=== PATIENT | female | born 1935 | race Caucasian/White ===

== ENCOUNTER 2018-04-12 18:49 | Inpatient (IN) ==
[2018-04-12] MEDS ORDERED: Ondansetron 4 MG/2 ML VIAL IVP ONE ×2 (18:52→20:13)
--- NOTE | 2018-04-12 18:53 | Emergency Department Note ---
START Narrative - START START: Start note: 81-year-old female by EMS for nausea and vomiting and abdominal cramping. No fevers chills shortness breath or chest pain. Patient is hemodynamically stable at 98 systolic. Slightly dry oral mucosa I discussed with the patient that I would be starting evaluation with lab work and give her some IV fluids and medicine for nausea and the evening ED attending team will assume care for her. Patient is in agreement and understanding of this. Patient stable
[2018-04-12] MEDS: 0.9 % Sodium Chloride 1,000 ML IVC ONE ×2 (19:08→19:47)
--- NOTE | 2018-04-12 19:09 | Emergency Department Note ---
Disposition Clinical Impression: Lactic acidosis, Colitis UTI (urinary tract infection) Qualifiers: Urinary tract infection type: site unspecified Hematuria presence: with hematuria Qualified Code(s): N39.0 - Urinary tract infection, site not specified Abdominal pain Qualifiers: Abdominal location: unspecified location Qualified Code(s): R10.9 - Unspecified abdominal pain Disposition: Admitted As Inpatient Condition: Good Referrals: Sae,Ashleigh Bruce [employer] [Primary Care Provider] - Forms: Work/School Release, ED Satisfaction Letter Time of Disposition: 20:38 Abdominal Pain HPI - General Chief Complaint: ED Nausea/Vomiting/Diarrhea Stated Complaint: nausea Time Seen by Provider: 04/12/18 18:51 Source: patient, EMS Mode of arrival: EMS Limitations: no limitations Nursing Notes Reviewed: Yes Vital Signs Reviewed: Yes - History of Present Illness HPI Narrative: 82-year-old female history of hypertension and non insulin-dependent diabetes mellitus presents emergency department via EMS with episode of nausea and abdominal discomfort. Around 1800 she was preparing to go to her son's house for dinner. She reports feeling nauseated. She wanted to throw up but was unable to. She is complaining of some discomfort to her lower abdomen. It is crampy and sharp. She reports a normal bowel movement today. She says lately she has been having loose stools. No recent antibiotic or hospitalization. No recent travel. She denied any chest pain or shortness of breath. She denies any urinary symptoms. History of total hysterectomy. No history of kidney stones or cardiac ischemic disease. Pt Subjective Complaint: abdominal pain Pain Scale: 0 - Related Data Home Medications Medication Instructions Recorded Confirmed Atorvastatin Calcium [Lipitor] 12/20/15 Calcium Carbonate/Vitamin D3 1 each PO 12/20/15 [Calcarb 600 W-Vitamin D Tab] Cholecalciferol (Vitamin D3) 2,000 unit PO 12/20/15 [Vitamin D] Lisinopril-HCTZ 20-12.5 [Prinzide 1 each PO 12/20/15 20-12.5] Metformin HCl [Fortamet] 12/20/15 Norvasc 12/20/15 Raloxifene [Evista] 60 mg PO DAILY 12/20/15 12/20/15 Trospium Chloride [Trospium 12/20/15 12/20/15 Chloride] Previous Rx's Medication Instructions Recorded Azithromycin [Azithromycin 6-Tab 250 mg PO DAILY #6 tab 12/20/15 Pack] Benzonatate [Tessalon] 100 - 200 mg PO TID PRN #30 capsule 12/20/15 Promethazine/Dextromethorphan 5 ml PO HS #120 ml 12/20/15 [Promethazine-Dm Syrup] Allergies Allergy/AdvReac Type Severity Reaction Status Date / Time No Known Allergies Allergy Verified 12/20/15 10:24 All systems ED: reviewed and negative except as stated. Review of Systems: As Per HPI Constitutional: Denies: fever, chills ENT ED: Denies: congestion Cardiovascular: Denies: chest pain Respiratory: Denies: dyspnea Gastrointestinal: Reports: abdominal pain, nausea, diarrhea. Denies: vomiting, melena, hematochezia Genitourinary: Denies: urgency, dysuria, frequency, hematuria Musculoskeletal: Denies: back pain Neurological: Denies: headache, weakness Abdominal Pain PMH - Past Medical History Medical history: Reports: diabetes, hypertension Female Surgical History: Reports: hysterectomy, orthopedic, other Psychiatric history: Reports: no psych history - Social History Smoking status: Never smoker Alcohol use: Reports: none Drug use: Reports: none Physical Exam - General Limitations: no limitations General appearance: alert, anxious - Head Head exam: atraumatic, normocephalic, normal inspection - Eye Eye exam: Present: normal appearance, PERRL, EOMI. Absent: scleral icterus - ENT ENT exam: normal exam, normal oropharynx, mucous membranes moist - Neck Neck exam: Present: normal inspection, full ROM, trachea midline - Chest Chest inspection: Present: normal inspection, symmetric chest wall rise. Absent : tenderness - Respiratory Respiratory exam: Present: normal lung sounds bilaterally. Absent: respiratory distress, wheezes - Cardiovascular Cardiovascular exam: Present: regular rate, normal rhythm, normal heart sounds - Abdominal Exam Abdominal exam: Present: soft, tenderness, guarding, normal bowel sounds. Absent: distention, rebound, rigidity, tenderness at McBurney's Point Abdominal tenderness: Present: LLQ, diffuse - Extremities Exam Extremities exam: Present: normal inspection, full ROM. Absent: tenderness, pedal edema - Back Exam Back exam: Present: normal inspection, full ROM, CVA tenderness (L) (Mild). Absent: tenderness, CVA tenderness (R) - Neurological Exam Neurological exam: Present: alert, oriented X3 - Psychiatric Psychiatric exam: Present: normal affect, normal mood - Skin Skin exam: Present: warm, dry, intact, normal color. Absent: rash, cyanosis, diaphoresis Course Course Narrative: Patient presents with a complaint of nausea vomiting and abdominal discomfort. Symptoms onset for the past 2 hours. On examination her abdomen is diffusely tender with some mild voluntary guarding. Her vital signs are stable. Her lungs are clear Kirkpatrick's regular rate. She had some mild CVA left tenderness. Labs are ordered prior to my evaluation and we will add a troponin to evaluate for possible ACS as well as a CT scan of her abdomen for possible diverticulitis or other abnormalities. Less likely SBO given only total hysterectomy - Reevaluation(s) Reevaluation #1: Urinalysis appears consistent with urinary tract infection. Will treat with ceftriaxone. Review for lab shows a leukocytosis which is suggestive of infection. Her creatinine is elevated suggesting it acute kidney injury. The rest of her workup is pending. Patient will likely require admission. Time: 19:51 Reevaluation #2: Lactase elevated 3.7. She continues to have some discomfort payment ordered. CT scan shows concern for possible colitis no diverticulitis. Will treat her with additional antibiotic Flagyl. Will check C. diff. At this time patient will require admission for her acute kidney injury, colitis, urinary tract infection and lactic acidosis. Patient and family are in agreement with this plan. She otherwise remains hemodynamically stable. Time: 20:36 - Consultations Consultation #1: Spoke with on-call hospitalist payam Parker to admit for RAGHU, colitis, UTI. No further orders at this time Time: 20:49 Vital Signs Temperature 97.5 F L 04/12/18 18:51 Pulse Rate 98 04/12/18 18:51 Respiratory Rate 20 04/12/18 18:51 Blood Pressure 140/98 04/12/18 18:51 O2 Sat by Pulse Oximetry 98 04/12/18 18:51 Temperature 97.8 F 04/12/18 20:22 Pulse Rate 102 04/12/18 20:22 Respiratory Rate 20 04/12/18 20:22 Blood Pressure 127/64 04/12/18 20:22 O2 Sat by Pulse Oximetry 100 04/12/18 20:22 Oxygen Delivery Oxygen Delivery Nasal Cannula Abdominal Pain - MDM Narrative Medical decision making narrative: Patient was discussed with my attending physician who agrees with ED management and final disposition. They independently evaluated the patient. Please refer to their attestation to this encounter for additional information. This note was generated by [employer] voice recognition software and as a result grammatical or spelling errors may occur using this program. - Medical Records Medical records reviewed: Yes I reviewed the patient's medical records. - Lab Data Lab results reviewed: Yes I reviewed the patient's lab results. Result diagrams: 04/12/18 19:06 04/12/18 19:06 Lab Results 04/12/18 04/12/18 04/12/18 Range/Units 19:06 19:06 19:15 WBC 15.1 H (4.3-11.1) K/mcL RBC 4.44 (3.82-4.97) M/mcL Hgb 13.2 (11.5-15.4) g/dL Hct 39.7 (35.3-44.9) % MCV 89.4 (83.0-100.0) fL MCH 29.7 (28.0-33.3) pg MCHC 33.2 (31.6-35.5) g/dL RDW 13.0 (11.5-14.5) % Plt Count 324 (140-400) K/mcL MPV 10.1 (9.4-12.4) fL Immature Gran % 0.4 (0-4) % Seg Neutrophils % 57.1 % Lymphocytes % 32.2 % Monocytes % 7.9 % Eosinophils % 2.1 % Basophils % 0.3 % Neutrophils # 8.6 (1.6-8.9) K/mcL Lymphocytes # 4.9 H (0.6-4.6) K/mcL Monocytes # 1.2 (0.0-1.3) K/mcL Eosinophils # 0.3 (0.0-0.6) K/mcL Basophils # 0.0 (0.0-0.2) K/mcL Sodium 138 (136-145) mEq/L Potassium 4.0 (3.5-5.1) mEq/L Chloride 102 (98-107) mEq/L Carbon Dioxide 22 L (23-29) mEq/L BUN 28 H (8-23) mg/dL Creatinine 1.36 H (0.60-1.20) mg/dL Est GFR ( Amer) 45 L (> 60) Est GFR (Non-Af Amer) 37 L (> 60) BUN/Creatinine Ratio 21 (6-26) Glucose 189 H (70-105) mg/dL Calculated Osmolality 297 (280-300) Lactic Acid (0.5-2.2) mmol/L Calcium 9.8 (8.6-10.3) mg/dL Total Bilirubin 0.6 (0.3-1.0) mg/dL Direct Bilirubin 0.1 (0.0-0.2) mg/dL Indirect Bilirubin 0.5 (0.0-1.2) mg/dL AST 23 (13-39) Units/L ALT 17 (7-52) Units/L Alkaline Phosphatase 97 (34-104) Units/L Troponin I (< 0.04) ng/mL Serum Total Protein 6.9 (6.4-8.9) g/dL Albumin 4.2 (3.5-5.7) g/dL Globulin 2.7 (2.4-3.5) g/dL Albumin/Globulin Ratio 1.6 (1.1-2.2) Amylase 336 H (29-103) Units/L Lipase 31 (11-82) Units/L Urine Color Yellow (Yellow) Urine Clarity Turbid A (Clear) Urine pH 5.5 (5.0-8.0) pH Units Ur Specific [place] 1.018 (1.010-1.025) Urine Protein 100 H (Neg-Trace) mg/dL Urine Glucose (UA) Normal (Normal) mg/dL Urine Ketones Negative (Negative) mg/dL Urine Blood Small H (Negative) Urine Nitrite Positive A (Negative) Urine Bilirubin Negative (Negative) Urine Urobilinogen Normal (Normal) mg/dL Ur Leukocyte Esterase Large H (Negative) Urine Microscopic RBC 5-15 H (0-3) per hpf Urine Microscopic WBC TNTC H (0-3) per hpf Ur Squamous Epith Cells Few (None-Few) per lpf Ur Transition Epith Cell Moderate H (None-Few) per hpf Ur Renal Epithelial Cell Few (None-Few) per hpf Urine Bacteria Moderate H (None-Few) per hpf Hyaline Casts Test Not Performed Ur Culture Indicated? YES A (NO) 04/12/18 04/12/18 Range/Units 19:35 19:35 WBC (4.3-11.1) K/mcL RBC (3.82-4.97) M/mcL Hgb (11.5-15.4) g/dL Hct (35.3-44.9) % MCV (83.0-100.0) fL MCH (28.0-33.3) pg MCHC (31.6-35.5) g/dL RDW (11.5-14.5) % Plt Count (140-400) K/mcL MPV (9.4-12.4) fL Immature Gran % (0-4) % Seg Neutrophils % % Lymphocytes % % Monocytes % % Eosinophils % % Basophils % % Neutrophils # (1.6-8.9) K/mcL Lymphocytes # (0.6-4.6) K/mcL Monocytes # (0.0-1.3) K/mcL Eosinophils # (0.0-0.6) K/mcL Basophils # (0.0-0.2) K/mcL Sodium (136-145) mEq/L Potassium (3.5-5.1) mEq/L Chloride (98-107) mEq/L Carbon Dioxide (23-29) mEq/L BUN (8-23) mg/dL Creatinine (0.60-1.20) mg/dL Est GFR ( Amer) (> 60) Est GFR (Non-Af Amer) (> 60) BUN/Creatinine Ratio (6-26) Glucose (70-105) mg/dL Calculated Osmolality (280-300) Lactic Acid 3.7 H (0.5-2.2) mmol/L Calcium (8.6-10.3) mg/dL Total Bilirubin (0.3-1.0) mg/dL Direct Bilirubin (0.0-0.2) mg/dL Indirect Bilirubin (0.0-1.2) mg/dL AST (13-39) Units/L ALT (7-52) Units/L Alkaline Phosphatase (34-104) Units/L Troponin I < 0.03 (< 0.04) ng/mL Serum Total Protein (6.4-8.9) g/dL Albumin (3.5-5.7) g/dL Globulin (2.4-3.5) g/dL Albumin/Globulin Ratio (1.1-2.2) Amylase (29-103) Units/L Lipase (11-82) Units/L Urine Color (Yellow) Urine Clarity (Clear) Urine pH (5.0-8.0) pH Units Ur Specific [place] (1.010-1.025) Urine Protein (Neg-Trace) mg/dL Urine Glucose (UA) (Normal) mg/dL Urine Ketones (Negative) mg/dL Urine Blood (Negative) Urine Nitrite (Negative) Urine Bilirubin (Negative) Urine Urobilinogen (Normal) mg/dL Ur Leukocyte Esterase (Negative) Urine Microscopic RBC (0-3) per hpf Urine Microscopic WBC (0-3) per hpf Ur Squamous Epith Cells (None-Few) per lpf Ur Transition Epith Cell (None-Few) per hpf Ur Renal Epithelial Cell (None-Few) per hpf Urine Bacteria (None-Few) per hpf Hyaline Casts Ur Culture Indicated? (NO) - Radiology Data Radiology results reviewed: Yes I reviewed the patient's radiology results. Abdomen/Pelvis CT 04/12/18 19:32 IMPRESSION: 1. Abnormal left colon bowel wall thickening and edema with surrounding phlegm a toward change representing nonspecific postinfectious or inflammatory origin. 2. Diverticulosis. 3. Hiatal hernia. 4. Right renal cysts. D/ / Rivas Jenkins MD / Rivas Jenkins MD Interpreting Provider: Rivas Jenkins MD - EKG Data EKG attestation: Yes I reviewed and interpreted this EKG. EKG results narrative: EKG performed 1900 normal sinus rhythm 97 bpm, normal axis, no ST elevation or depression, no T-wave inversion, intervals appear within normal limits OK interval 172 QRS 98 QT 370. There is an old EKG available for comparison at this time. No acute ischemic changes.
[2018-04-12 19:15] LABS: Basophils % 0.3 %; Eosinophils # 0.3 K/mcL (0.0-0.6); Eosinophils % 2.1 %; Hematocrit 39.7 % (35.3-44.9); Hemoglobin 13.2 g/dL (11.5-15.4); Immature Granulocytes % 0.4 % (0-4); Lymphocytes # 4.9 K/mcL (0.6-4.6); Lymphocytes % 32.2 %; Mean Corpuscular HGB Conc 33.2 g/dL (31.6-35.5); Mean Corpuscular Hemoglobin 29.7 pg (28.0-33.3); Mean Corpuscular Volume 89.4 fL (83.0-100.0); Mean Platelet Volume 10.1 fL (9.4-12.4); Monocytes # 1.2 K/mcL (0.0-1.3); Monocytes % 7.9 %; Neutrophils # 8.6 K/mcL (1.6-8.9); Platelet Count 324 K/mcL (140-400); Red Blood Count 4.44 M/mcL (3.82-4.97); Segmented Neutrophils % 57.1 %
[2018-04-12 19:22] LABS: Bilirubin,Urine Negative (Negative); Blood,Urine Small (Negative); Clarity,Urine Turbid (Clear); Color,Urine Yellow (Yellow); Glucose,Urine (UA) Normal (Normal); Ketones,Urine Negative (Negative); Leukocyte Esterase,Urine Large (Negative); Nitrite,Urine Positive (Negative); PH,Urine 5.5 pH Units (5.0-8.0); Protein,Urine 100 mg/dL (Neg-Trace); Specific Gravity,Urine 1.018 (1.010-1.025); Urobilinogen,Urine Normal (Normal)
[2018-04-12 19:25] LABS: Bacteria,Urine Moderate per hpf (None-Few); WBC,Urine TNTC per hpf (0-3)
[2018-04-12 19:34] LABS: Squamous Epithelial Cell,Urine Few per lpf (None-Few); Transitional Epi Cells,Urine Moderate per hpf (None-Few)
[2018-04-12 19:35] LABS: Albumin 4.2 g/dL (3.5-5.7); Albumin/Globulin Ratio 1.6 (1.1-2.2); Bilirubin,Direct 0.1 mg/dL (0.0-0.2); Bilirubin,Indirect 0.5 mg/dL (0.0-1.2); Bilirubin,Total 0.6 mg/dL (0.3-1.0); Calcium 9.8 mg/dL (8.6-10.3); Globulin 2.7 g/dL (2.4-3.5); Total Protein 6.9 g/dL (6.4-8.9)
[2018-04-12 19:35] LABS: Renal Epithelial Cells,Urine Few per hpf (None-Few)
[2018-04-12] MEDS ORDERED: cefTRIAXone 1,000 MG in Water for inj. (sterile) 20 ML 10 ML IVP ONE (19:41)
--- NOTE | 2018-04-12 19:48 | Emergency Department Note ---
Disposition Clinical Impression: UTI (urinary tract infection) Qualifiers: Urinary tract infection type: site unspecified Hematuria presence: with hematuria Qualified Code(s): N39.0 - Urinary tract infection, site not specified ; R31.9 - Hematuria, unspecified Disposition: Admitted As Inpatient Referrals: Ashleigh Quevedo CNP [Primary Care Provider] - Forms: ED Satisfaction Letter, Work/School Release General Adult HPI - General Chief complaint: ED Nausea/Vomiting/Diarrhea Stated complaint: nausea Time Seen by Provider: 04/12/18 18:51 Source: patient, EMS Mode of arrival: EMS Limitations: no limitations - History of Present Illness Pain Scale: 0 - Related Data Home Medications Medication Instructions Recorded Confirmed Atorvastatin Calcium [Lipitor] 12/20/15 Calcium Carbonate/Vitamin D3 1 each PO 12/20/15 [Calcarb 600 W-Vitamin D Tab] Cholecalciferol (Vitamin D3) 2,000 unit PO 12/20/15 [Vitamin D] Lisinopril-HCTZ 20-12.5 [Prinzide 1 each PO 12/20/15 20-12.5] Metformin HCl [Fortamet] 12/20/15 Norvasc 12/20/15 Raloxifene [Evista] 60 mg PO DAILY 12/20/15 12/20/15 Trospium Chloride [Trospium 12/20/15 12/20/15 Chloride] Previous Rx's Medication Instructions Recorded Azithromycin [Azithromycin 6-Tab 250 mg PO DAILY #6 tab 12/20/15 Pack] Benzonatate [Tessalon] 100 - 200 mg PO TID PRN #30 capsule 12/20/15 Promethazine/Dextromethorphan 5 ml PO HS #120 ml 12/20/15 [Promethazine-Dm Syrup] Allergies Allergy/AdvReac Type Severity Reaction Status Date / Time No Known Allergies Allergy Verified 12/20/15 10:24 Past Medical History - Past Medical History Medical history: Reports: diabetes, hypertension Psychiatric history: Reports: no psych history - Social History Smoking Status: Never smoker Smokeless Tobacco Status: No Alcohol use: Reports: none Drug use: Reports: none Physical Exam - General Limitations: no limitations General appearance: alert, anxious Course Vital Signs Temperature 97.5 F L 04/12/18 18:51 Pulse Rate 98 04/12/18 18:51 Respiratory Rate 20 08/12/18 18:51 Blood Pressure 140/98 08/12/18 18:51 O2 Sat by Pulse Oximetry 98 04/12/18 18:51 Temperature 98.2 F 04/12/18 19:40 Pulse Rate 94 04/12/18 19:40 Respiratory Rate 20 04/12/18 19:40 Blood Pressure 128/83 04/12/18 19:40 O2 Sat by Pulse Oximetry 100 04/12/18 19:40 Oxygen Delivery Oxygen Delivery Nasal Cannula Medical Decision Making - Lab Data Result diagrams: 04/12/18 19:06 04/12/18 19:06 Lab Results 04/12/18 04/12/18 04/12/18 Range/Units 19:06 19:06 19:15 WBC 15.1 H (4.3-11.1) K/mcL RBC 4.44 (3.82-4.97) M/mcL Hgb 13.2 (11.5-15.4) g/dL Hct 39.7 (35.3-44.9) % MCV 89.4 (83.0-100.0) fL MCH 29.7 (28.0-33.3) pg MCHC 33.2 (31.6-35.5) g/dL RDW 13.0 (11.5-14.5) % Plt Count 324 (140-400) K/mcL MPV 10.1 (9.4-12.4) fL Immature Gran % 0.4 (0-4) % Seg Neutrophils % 57.1 % Lymphocytes % 32.2 % Monocytes % 7.9 % Eosinophils % 2.1 % Basophils % 0.3 % Neutrophils # 8.6 (1.6-8.9) K/mcL Lymphocytes # 4.9 H (0.6-4.6) K/mcL Monocytes # 1.2 (0.0-1.3) K/mcL Eosinophils # 0.3 (0.0-0.6) K/mcL Basophils # 0.0 (0.0-0.2) K/mcL Sodium 138 (136-145) mEq/L Potassium 4.0 (3.5-5.1) mEq/L Chloride 102 (98-107) mEq/L Carbon Dioxide 22 L (23-29) mEq/L BUN 28 H (8-23) mg/dL Creatinine 1.36 H (0.60-1.20) mg/dL Est GFR ( Amer) 45 L (> 60) Est GFR (Non-Af Amer) 37 L (> 60) BUN/Creatinine Ratio 21 (6-26) Glucose 189 H (70-105) mg/dL Calculated Osmolality 297 (280-300) Calcium 9.8 (8.6-10.3) mg/dL Total Bilirubin 0.6 (0.3-1.0) mg/dL Direct Bilirubin 0.1 (0.0-0.2) mg/dL Indirect Bilirubin 0.5 (0.0-1.2) mg/dL AST 23 (13-39) Units/L ALT 17 (7-52) Units/L Alkaline Phosphatase 97 (34-104) Units/L Serum Total Protein 6.9 (6.4-8.9) g/dL Albumin 4.2 (3.5-5.7) g/dL Globulin 2.7 (2.4-3.5) g/dL Albumin/Globulin Ratio 1.6 (1.1-2.2) Amylase 336 H (29-103) Units/L Lipase 35 (11-82) Units/L Urine Color Yellow (Yellow) Urine Clarity Turbid A (Clear) Urine pH 5.5 (5.0-8.0) pH Units Ur Specific [place] 1.018 (1.010-1.025) Urine Protein 100 H (Neg-Trace) mg/dL Urine Glucose (UA) Normal (Normal) mg/dL Urine Ketones Negative (Negative) mg/dL Urine Blood Small H (Negative) Urine Nitrite Positive A (Negative) Urine Bilirubin Negative (Negative) Urine Urobilinogen Normal (Normal) mg/dL Ur Leukocyte Esterase Large H (Negative) Urine Microscopic RBC 5-15 H (0-3) per hpf Urine Microscopic WBC TNTC H (0-3) per hpf Ur Squamous Epith Cells Few (None-Few) per lpf Ur Transition Epith Cell Moderate H (None-Few) per hpf Ur Renal Epithelial Cell Few (None-Few) per hpf Urine Bacteria Moderate H (None-Few) per hpf Hyaline Casts Test Not Performed Ur Culture Indicated? YES A (NO) Attestation Statement - Attestation Attestation: I examined this patient and my medical decision-making was reviewed with the Resident Physician. I agree with the documented findings, disposition and treatment plan as described except to the extent set forth below. 82 year old female present to the eD with complaints of AMS and abdominal pain with nausea. Family at bedside states that EMS obtained a low blood pressure although for us she is [id number]. Patient has an obvisous UTI on UA and a new RAGHU. We will start Rocephin and obtain a ABCT to rule out infected stone vs pyelo secondary to left flank pain and admit to medicine
[2018-04-12] MEDS ORDERED: 0.9 % Sodium Chloride 1,000 ML IVC ONE (19:59)
[2018-04-12] MEDS ORDERED: *HR* FentaNYL (PF) 100 MCG/2 ML VIAL IVP ONE (20:13)
[2018-04-12] MEDS ORDERED: MetroNIDAZOLE 500 MG/100 ML 500 MG/100 ML BAG IVPB ONE (20:35)
[2018-04-12] MEDS ORDERED: Naloxone 0.4 MG/ML INJ IVP PRN (22:36)
[2018-04-12] MEDS ORDERED: Bisacodyl 10 MG RECTAL SUPPOSITORY RC PRN (22:47)
--- NOTE | 2018-04-12 23:08 | Internal Med History&Physical ---
<Yury Villanueva P - Last Filed: 04/12/18 23:40> Date of Encounter: 04/12/18 Time of Encounter: 22:00 Internal Medicine - H&P: HPI Chief complaint: Abdominal Pain Admitted From: Home Plans for Post Hospital Care: Home History of present illness: Ms. Cook is a 82 year old female presents from home by squad to ER for abdominal pain and nausea with dry heaves but no vomiting that started today. Describes abdominal pain as sharp cramping sensation. Most recent bowel movement was yesterday which was normal for her. Denies any current diarrhea. States she felt similar to this around two weeks ago but was able to have a bowel movement shortly after which alleviated her symptoms. Denies any current treatment. Denies any exacerbating or alleviating factors. No current urinary symptoms. No recent travel or sick contacts. Past Med Surg Social Fam HX - Past Medical History Medical history: diabetes, hyperlipidemia, hypertension Psychiatric history: no psych history - Past Surgical History Surgical History: hysterectomy Additional surgical history: back and shoulder sx - Social History Smoking Status: Never smoker Smokeless Tobacco Status: No Alcohol use: none Drug use: none Internal Medicine - H&P: Meds Atorvastatin Calcium [Lipitor] 80 mg PO DAILY 12/20/15 [History] Azithromycin [Azithromycin 6-Tab Pack] 250 mg PO DAILY #6 tab 12/20/15 [Rx] Benzonatate [Tessalon] 100 - 200 mg PO TID PRN #30 capsule 12/20/15 [Rx] Calcium Carbonate/Vitamin D3 [Calcarb 600 W-Vitamin D Tab] 1 each PO 12/20/15 [ History] Cholecalciferol (Vitamin D3) [Vitamin D] 2,000 unit PO 12/20/15 [History] Lisinopril-HCTZ 20-12.5 [Prinzide 20-12.5] 1 each PO BID 12/20/15 [History] Metformin HCl [Fortamet] 500 mg PO BID 12/20/15 [History] Norvasc 12/20/15 [History] Promethazine/Dextromethorphan [Promethazine-Dm Syrup] 5 ml PO HS #120 ml [Rx] Raloxifene [Evista] 60 mg PO DAILY 12/20/15 [History] Trospium Chloride [Trospium Chloride] 20 mg PO BID 12/20/15 [History] Aspirin [Lo-Dose Aspirin EC] 81 mg PO DAILY 04/12/18 [History] Calcium Carbonate [Calcium] 500 mg PO BID 04/12/18 [History] Cholecalciferol (D-3) [Vitamin D] 1,000 unit PO DAILY 04/12/18 [History] Ginkgo Biloba [place] Extract [Ginkgo Biloba] 60 mg PO DAILY 04/12/18 [History] L.acidoph,Paracasei, B.lactis [Probiotic] 1 each PO DAILY 04/12/18 [History] amLODIPine [Norvasc] 10 mg PO DAILY 04/12/18 [History] 3 Allergy/AdvReac Type Severity Reaction Status Date / Time No Known Allergies Allergy Verified 12/20/15 10:24 All Systems PM: A 10-system review of systems was performed and is negative for pertinent findings except as documented above in the HPI. - Constitutional Vitals: Temp Pulse Resp BP Pulse Ox 97.6 F 109 16 125/58 99 04/12/18 21:42 04/12/18 21:42 04/12/18 21:42 04/12/18 21:42 04/12/18 21:42 Exam: General: Alert and oriented. Skin:Normal color, no rash, no lesions. HEENT:EOM, pupils equal, round and reactive. Cardiovascular:Normal S1 & S2, no rubs, murmurs or gallops. No JVD. Pulse regular. Lungs:Normal breath sounds, no wheezes or crackles. Abdomen:Soft, tender, and distended. Tenderness increased with palpation. Extremities:No deformity, no edema or tenderness, no joint swelling or clubbing. Neurological:Normal cognition and motor skills. Pulses:Carotid and radial pulses normal +2. Rest of the physical exam is non contributory. Internal Med - H&P Results - Labs CBC & Chem 7: 04/12/18 19:06 04/12/18 19:06 - Assessment and plan (1) Sepsis Current Visit: Yes Status: Acute Assessment and plan: Sepsis secondary to colitis and UTI resulting in lactic acidosis and acute kidney injury. Repeat lactic acid now. Continuous fluids at 100 ml/hr. Blood and urine cultures pending. Continue IV Flagyl. Start IV Cipro. Continuous cardiac monitoring. Oxygen to maintain 02 saturation greater than 92%. Repeat CBC and BMP in a.m. Qualifiers: Qualified Code(s): A41.9 - Sepsis, unspecified organism (2) Lactic acidosis Current Visit: Yes Status: Acute Assessment and plan: Plan as listed above. (3) Colitis Current Visit: Yes Status: Acute Assessment and plan: Plan as listed above. (4) UTI (urinary tract infection) Current Visit: Yes Status: Acute Assessment and plan: Plan as listed above. Qualifiers: Urinary tract infection type: site unspecified Hematuria presence: with hematuria Qualified Code(s): N39.0 - Urinary tract infection, site not specified; R31.9 - Hematuria, unspecified (5) Acute kidney injury Current Visit: Yes Status: Acute Assessment and plan: Plan as listed above. (6) Constipation Current Visit: Yes Status: Suspected Assessment and plan: Patient with solid bowel movement yesterday. Feels she needs to defecate but is unable. Denies any recent diarrhea. Dulcolax suppository PRN. Qualifiers: Constipation type: unspecified constipation type Qualified Code(s): K59.00 - Constipation, unspecified - Time Spent With Patient Total time spent is greater than 50% in coordination of care (as documented) at patient's floor/unit and/or counseling patient: <TalitaJarek Silva - Last Filed: 04/13/18 00:48> Date of Encounter: 04/13/18 Internal Medicine - H&P: HPI History of present illness: Ms. Cook is a 82 year old female All Systems PM: A 10-system review of systems was performed and is negative for pertinent findings except as documented above in the HPI. - Constitutional Vitals: Temp Pulse Resp BP Pulse Ox 97.6 F 109 16 125/58 99 04/12/18 21:42 04/12/18 21:42 04/12/18 21:42 04/12/18 21:42 04/12/18 21:42 Internal Med - H&P Results - Labs CBC & Chem 7: 04/12/18 19:06 04/12/18 19:06 - Attending Attestation I have seen and examined the patient with Hakeem Villanueva and agree with his/her assessment and plan. 82-year-old female with history of hypertension, hyperlipidemia, diabetes presents to ED with 1 day history of nausea and vomiting. No diarrhea but she says she did not have any bowel movement for the last 30-36 hours. No travel history, recent antibiotic use, or fevers/chills. Exam showed significant tenderness on the left side of the abdomen and costovertebral region. Otherwise afebrile and stable hemodynamics. Labs also showed leukocytosis, RAGHU, and lactic acidosis along with urinalysis being positive for LE and nitrite. CT scan showed abnormal left colon bowel wall thickening and edema with surrounding inflammatory changes, non specific for post-infectious or inflammatory changes. She is diagnosed with severe sepsis secondary to UTI +/- colitis and RAGHU. Clinically, in the absence of significant travel history or diarrhea, suspicion for infectious causes of colitis is low. Nevertheless, will switch abx to Cipro that will cover the both dx and add Flagyl for anaerobic coverage. NPO, anti-emetics, pain control. Fluid boluses when necessary and trend lactic acid. Maintenance IV fluid for RAGHU, monitor creatinine and avoid nephrotoxins. We will follow up on urine culture and blood culture. If she develops diarrhea, will proceed with C. difficile and GI panel. Jarek Sanon MD - Assessment and plan (1) UTI (urinary tract infection) Current Visit: Yes Status: Acute Qualifiers: Urinary tract infection type: site unspecified Hematuria presence: with hematuria Qualified Code(s): N39.0 - Urinary tract infection, site not specified; R31.9 - Hematuria, unspecified (2) Lactic acidosis Current Visit: Yes Status: Acute (3) Colitis Current Visit: Yes Status: Acute (4) Sepsis Current Visit: Yes Status: Acute Qualifiers: Qualified Code(s): A41.9 - Sepsis, unspecified organism (5) Acute kidney injury Current Visit: Yes Status: Acute (6) Constipation Current Visit: Yes Status: Suspected Qualifiers: Constipation type: unspecified constipation type Qualified Code(s): K59.00 - Constipation, unspecified - Time Spent With Patient Total time spent is greater than 50% in coordination of care (as documented) at patient's floor/unit and/or counseling patient:
[2018-04-12] MEDS: 0.9 % Sodium Chloride 1,000 ML IVC SCH (23:42)
[2018-04-13] MEDS ORDERED: Naloxone 0.4 MG/ML INJ IVP PRN (00:29)
[2018-04-13] MEDS ORDERED: OXYCODONE Oral CONC 10 MG/0.5 ML ORAL.SYG SL PRN (00:29)
[2018-04-13] MEDS ORDERED: *HR* Promethazine 25 MG/ML VIAL IVP PRN (00:29)
[2018-04-13] MEDS ORDERED: 0.9 % Sodium Chloride 1,000 ML IVC SCH (00:45)
[2018-04-13] MEDS: Ondansetron 4 MG/2 ML VIAL IVP PRN (01:15)
[2018-04-13] MEDS: OXYCODONE Oral CONC 10 MG/0.5 ML ORAL.SYG SL PRN ×2 (01:15→23:13)
[2018-04-13] MEDS: MetroNIDAZOLE 500 MG/100 ML 500 MG/100 ML BAG IVPB SCH ×3 (04:19→20:01)
[2018-04-13 05:17] LABS: Basophils % 0.1 %; Hematocrit 35.6 % (35.3-44.9); Hemoglobin 11.7 g/dL (11.5-15.4); Immature Granulocytes % 0.5 % (0-4); Mean Corpuscular HGB Conc 32.9 g/dL (31.6-35.5); Mean Corpuscular Hemoglobin 28.9 pg (28.0-33.3); Mean Corpuscular Volume 87.9 fL (83.0-100.0); Monocytes # 1.5 K/mcL (0.0-1.3); Monocytes % 7.4 %; Neutrophils # 18.2 K/mcL (1.6-8.9); Platelet Count 295 K/mcL (140-400); Red Blood Count 4.05 M/mcL (3.82-4.97); Red Cell Distribution Width 13.4 % (11.5-14.5)
[2018-04-13] MEDS: *HR* Heparin 5,000 UNIT/ML VIAL SQ SCH ×2 (05:42→17:00)
[2018-04-13 05:45] LABS: BUN/Creatinine Ratio 27 (6-26); Blood Urea Nitrogen 26 mg/dL (8-23); Calcium 7.8 mg/dL (8.6-10.3); Carbon Dioxide 19 mEq/L (23-29); Chloride 108 mEq/L (98-107); Glucose 238 mg/dL (70-105); Osmolality,Calculated 297 (280-300); Sodium 137 mEq/L (136-145); eGFR For Non-African Americans 54 (> 60)
[2018-04-13] MEDS: amLODIPine 5 MG TABLET PO SCH (07:59)
[2018-04-13] MEDS: Aspirin Enteric Coated 81 MG Tablet PO SCH (08:00)
[2018-04-13] MEDS ORDERED: Lisinopril-HCTZ 20-12.5mg TABLET PO SCH (12:15)
[2018-04-13] MEDS ORDERED: GINKGO BILOBA LEAF EXTRACT 60 MG PO SCH (12:15)
[2018-04-13] MEDS ORDERED: D5% in Water 1,000 ML IVC PRN (12:20)
[2018-04-13] MEDS ORDERED: *HR* Dextrose 50 % in Water (Syg) 50 ML SYRINGE IVP PRN (12:20)
[2018-04-13] MEDS ORDERED: Dextrose Gel 15 GM/37.5 ML TUBE PO PRN ×2 (12:20)
[2018-04-13] MEDS ORDERED: 0.9 % Sodium Chloride 500 ML IVC ONE (12:30)
--- NOTE | 2018-04-13 12:33 | Internal Med Progress Note ---
Hospitalist Progress Note - Encounter Date of Encounter: 04/13/18 Time of Encounter: 12:31 - Subjective Interval History: Patient had no acute events overnight. She states that she feels "little better " today, but still with significant abdominal pain. She states that she has been unable to have bowel movement despite trying to go. She denies fever, chills, chest pain, SOB, nausea, or vomiting. She states that her mouth is dry and wants to try liquid diet. She has no other complaints at this time. - Exam Vitals: Temp Pulse Resp BP Pulse Ox 99.3 F 110 18 110/67 92 04/13/18 11:21 04/13/18 11:21 04/13/18 11:21 04/13/18 11:21 04/13/18 11:21 Exam: Gen - Awake, alert, no acute distress HEENT - NCAT, PERRLA, EOMI, hearing grossly intact, oropharynx benign CV - Tachycardic, regular rhythm, normal S1 and S2, no M/R/G, no BLE edema Resp - Normal WOB, CTAB, no W/R/R GI - Soft, non-distended, moderate TTP diffusely across abdomen with some guarding but no rebound, hypoactive bowel sounds, no HSP Skin - Warm, dry, no rashes/lesions/ulcers Psych - Normal mood and affect, no depression or anxiety - Assessment and Plan (1) Sepsis Current Visit: Yes Status: Acute Assessment and Plan: Still with tachycardia and worsening leukocytosis. Patient states that she is subjectively feeling better. Sources likely colitis and UTI. Give 500 ml IV NS bolus, then continue at 125 ml/hr. Continue IV cipro and IV flagyl to cover both colitis and UTI. If leukocytosis continues to worsen and she does not get clinically better, will have to broaden antibiotic coverage. Follow up on urine and blood cultures. Continue telemetry. Repeat labwork, including lactic acid, in AM. (2) Colitis Current Visit: Yes Status: Acute Assessment and Plan: Antibiotics as per above. Still with significant abdominal pain. Will monitor closely and order further imaging if necessary. (3) UTI (urinary tract infection) Current Visit: Yes Status: Acute Assessment and Plan: Continue antibiotics as per above. Luna catheter removed today. Follow up on urine culture. (4) Acute kidney injury Current Visit: Yes Status: Acute Assessment and Plan: Improved. Continue IVF as per above. Recheck BMP in AM. (5) Lactic acidosis Current Visit: Yes Status: Acute Assessment and Plan: Management as per above. (6) Constipation Current Visit: Yes Status: Suspected Assessment and Plan: No BM in last 24 hours despite urge. Give miralax once. Start senna/docusate BID. Continue Dulcolax suppository PRN. Resumed home probiotic today. Treating colitis as per above. (7) Type 2 diabetes mellitus with hyperglycemia Current Visit: Yes Status: Chronic Assessment and Plan: Mild hyperglycemia. Will start accuchecks and low dose SSI QID AC/HS with initiation of clear liquid diet. (8) Hypertension Current Visit: Yes Status: Chronic Assessment and Plan: Currently borderline hypotensive. Hold home medications. Monitor vitals closely. (9) DVT prophylaxis Current Visit: Yes Status: Acute Assessment and Plan: Continue SQ heparin. - Time Spent with Patient Total time spent is greater than 50% in coordination of care (as documented) at patient's floor/unit and/or counseling patient: less than 15 minutes Plan of Care Discussed with: patient (Nurse, Case Management, Pharmacist) Internal Medicine: Result - Labs CBC & Chem 7: 04/13/18 05:04 04/13/18 05:04 Labs: Short CBC 04/13/18 Range/Units 05:04 WBC 20.9 H (4.3-11.1) K/mcL Hgb 11.7 D (11.5-15.4) g/dL Hct 35.6 (35.3-44.9) % Plt Count 295 (140-400) K/mcL Neutrophils # 18.2 H (1.6-8.9) K/mcL BMP 04/13/18 05:04 Sodium 137 Potassium 4.0 Chloride 108 H Carbon Dioxide 19 L BUN 26 H Creatinine 0.98 Glucose 238 H Calcium 7.8 L - VTE Documentation of Mechanical Device: Intermittent pneumatic compression device Consult Discharge Plan - Plan Referrals: Ashleigh Quevedo, [facility] [Primary Care Provider] - (1) Sepsis Qualifiers: Sepsis type: sepsis due to unspecified organism Qualified Code(s): A41.9 - Sepsis, unspecified organism (3) UTI (urinary tract infection) Qualifiers: Urinary tract infection type: site unspecified Hematuria presence: with hematuria Qualified Code(s): N39.0 - Urinary tract infection, site not specified; R31.9 - Hematuria, unspecified (6) Constipation Qualifiers: Constipation type: unspecified constipation type Qualified Code(s): K59.00 - Constipation, unspecified (7) Type 2 diabetes mellitus with hyperglycemia Qualifiers: Diabetes mellitus alf insulin use: without alf use Qualified Code (s): E11.65 - Type 2 diabetes mellitus with hyperglycemia (8) Hypertension Qualifiers: Hypertension type: essential hypertension Qualified Code(s): I10 - Essential (primary) hypertension
[2018-04-13 13:17] LABS: Estimated Average Glucose 163 mg/dl; Hemoglobin A1C 7.3 %
[2018-04-13] MEDS: Lactobacillus 1 EACH CAP.SPRINK PO SCH (13:35)
[2018-04-13] MEDS: Cholecalciferol (D-3) 1,000 UNIT TABLET PO SCH (13:35)
[2018-04-13] MEDS: Insulin LISPRO 300 UNITS/3 ML VIAL SQ SCH ×2 (14:00→17:01)
[2018-04-13] MEDS: 0.9 % Sodium Chloride 1,000 ML IVC SCH ×2 (14:07→15:58)
[2018-04-13] MEDS: Sennosides/Docusate Sodium TABLET PO SCH ×2 (14:19→20:02)
[2018-04-13] MEDS: Albuterol 2.5 MG/3 ML NEBULIZER IH PRN (15:14)
[2018-04-13] MEDS ORDERED: Insulin LISPRO 300 UNITS/3 ML VIAL SQ SCH (21:00)
[2018-04-13] MEDS: Beclomethasone 80mcg MDI IH SCH (21:12)
[2018-04-14] MEDS: 0.9 % Sodium Chloride 1,000 ML IVC SCH ×3 (02:00→12:57)
[2018-04-14] MEDS: MetroNIDAZOLE 500 MG/100 ML 500 MG/100 ML BAG IVPB SCH (03:57)
[2018-04-14] MEDS: Ondansetron 4 MG/2 ML VIAL IVP PRN ×3 (03:57→20:53)
[2018-04-14 05:31] LABS: Hematocrit 29.5 % (35.3-44.9); Mean Corpuscular HGB Conc 34.2 g/dL (31.6-35.5); Mean Corpuscular Hemoglobin 30.6 pg (28.0-33.3); Mean Corpuscular Volume 89.4 fL (83.0-100.0); Mean Platelet Volume 10.1 fL (9.4-12.4); Platelet Count 234 K/mcL (140-400); Red Cell Distribution Width 13.7 % (11.5-14.5)
[2018-04-14 05:46] LABS: Hemoglobin 10.1 g/dL (11.5-15.4)
[2018-04-14 05:50] LABS: BUN/Creatinine Ratio 24 (6-26); Blood Urea Nitrogen 23 mg/dL (8-23); Carbon Dioxide 21 mEq/L (23-29); Chloride 105 mEq/L (98-107); Glucose 160 mg/dL (70-105); Osmolality,Calculated 285 (280-300); Potassium 3.3 mEq/L (3.5-5.1); Sodium 134 mEq/L (136-145); eGFR For Non-African Americans 55 (> 60)
[2018-04-14] MEDS: *HR* Heparin 5,000 UNIT/ML VIAL SQ SCH ×2 (06:08→17:21)
[2018-04-14 06:11] LABS: Lymphocytes # 1.4 K/mcL (0.6-4.6); Monocytes # 1.1 K/mcL (0.0-1.3); Neutrophils # 15.3 K/mcL (1.6-8.9); Platelet Estimate Normal (Normal)
[2018-04-14] MEDS: Beclomethasone 80mcg MDI IH SCH ×2 (07:18→22:02)
--- NOTE | 2018-04-14 08:33 | Internal Med Progress Note ---
Hospitalist Progress Note - Encounter Date of Encounter: 04/14/18 Time of Encounter: 08:15 - Subjective Interval History: No acute events overnight - Exam Vitals: Temp Pulse Resp BP Pulse Ox 99.2 F 106 18 121/73 97 04/14/18 07:30 04/14/18 07:30 04/14/18 07:30 04/14/18 07:30 04/14/18 07:30 Exam: Gen - Awake, alert, no acute distress HEENT - NCAT, PERRLA, EOMI, hearing grossly intact, oropharynx benign CV - Tachycardic, regular rhythm, normal S1 and S2, no M/R/G, no BLE edema Resp - Normal WOB, CTAB, no W/R/R GI - Soft, mildly distended, moderate TTP diffusely across abdomen with some guarding but no rebound, hypoactive bowel sounds, no HSP Skin - Warm, dry, no rashes/lesions/ulcers Psych - Normal mood and affect, no depression or anxiety - Assessment and Plan (1) Sepsis Current Visit: Yes Status: Acute Assessment and Plan: Still with tachycardia and worsening leukocytosis. Patient states that she is subjectively feeling better. Sources likely colitis and UTI. Continue IV fluids. Antibiotics broadened to zosyn this am 22 to worsening leukocytosis. Follow up blood cultures (2) Small bowel obstruction Current Visit: Yes Status: Acute Assessment and Plan: CT scan with IV contrast done today showed Mild distention of the proximal small bowel with gradual tapering to the collapsed distal small bowel. Findings could represent an ileus or an early partial small bowel obstruction. Surgery has been consulted for further evaluation. NPO (3) Abdominal mass Current Visit: Yes Status: Acute Assessment and Plan: CT scan with IV contrast showed soft tissue mass in the mesentery measuring 3.8 x 3.1 cm. There are several mildly enlarged mesenteric lymph nodes. Oncology consulted and appreciate recommendations (4) UTI (urinary tract infection) Current Visit: Yes Status: Acute Assessment and Plan: Continue antibiotics as per above. Luna catheter removed today. Follow up on urine culture. (5) Lactic acidosis Current Visit: Yes Status: Acute Assessment and Plan: Management as per above. (6) Colitis Current Visit: Yes Status: Acute Assessment and Plan: Antibiotics as per above. Still with significant abdominal pain. Will monitor closely and order further imaging if necessary. CT abdomen on showed left colon wall thickening and diverticulosis (7) Acute kidney injury Current Visit: Yes Status: Acute Assessment and Plan: Improved. Continue IVF as per above. Recheck BMP in AM. (8) Constipation Current Visit: Yes Status: Suspected Assessment and Plan: No BM in last 24 hours despite urge. Give miralax once. Start senna/docusate BID. Continue Dulcolax suppository PRN. Resumed home probiotic today. Treating colitis as per above. (9) DVT prophylaxis Current Visit: Yes Status: Acute Assessment and Plan: Continue SQ heparin. (10) Type 2 diabetes mellitus with hyperglycemia Current Visit: Yes Status: Chronic Assessment and Plan: Mild hyperglycemia. Will start accuchecks and low dose SSI QID AC/HS with initiation of clear liquid diet. (11) Hypertension Current Visit: Yes Status: Chronic Assessment and Plan: Currently borderline hypotensive. Hold home medications. Monitor vitals closely. (12) Hypokalemia Current Visit: Yes Status: Acute Assessment and Plan: Replaced - Time Spent with Patient Total time spent is greater than 50% in coordination of care (as documented) at patient's floor/unit and/or counseling patient: Internal Medicine: Result - Labs CBC & Chem 7: 04/14/18 05:18 04/14/18 05:18 Labs: Short CBC 04/14/18 Range/Units 05:18 WBC 17.8 H (4.3-11.1) K/mcL Hgb 10.1 L D (11.5-15.4) g/dL Hct 29.5 L (35.3-44.9) % Plt Count 234 (140-400) K/mcL Neutrophils # 15.3 H (1.6-8.9) K/mcL BMP 04/14/18 05:18 Sodium 134 L Potassium 3.3 L Chloride 105 Carbon Dioxide 21 L BUN 23 Creatinine 0.97 Glucose 160 H Calcium 8.0 L - VTE Documentation of Mechanical Device: Intermittent pneumatic compression device Consult Discharge Plan - Plan Referrals: Ashleigh Quevedo, [employer] [Primary Care Provider] - (1) Sepsis Qualifiers: Sepsis type: sepsis due to unspecified organism Qualified Code(s): A41.9 - Sepsis, unspecified organism (4) UTI (urinary tract infection) Qualifiers: Urinary tract infection type: site unspecified Hematuria presence: with hematuria Qualified Code(s): N39.0 - Urinary tract infection, site not specified; R31.9 - Hematuria, unspecified (8) Constipation Qualifiers: Constipation type: unspecified constipation type Qualified Code(s): K59.00 - Constipation, unspecified (10) Type 2 diabetes mellitus with hyperglycemia Qualifiers: Diabetes mellitus exterminator insulin use: without exterminator use Qualified Code (s): E11.65 - Type 2 diabetes mellitus with hyperglycemia (11) Hypertension Qualifiers: Hypertension type: essential hypertension Qualified Code(s): I10 - Essential (primary) hypertension
[2018-04-14] MEDS: Insulin LISPRO 300 UNITS/3 ML VIAL SQ SCH ×3 (08:42→17:56)
[2018-04-14] MEDS: Aspirin Enteric Coated 81 MG Tablet PO SCH (08:44)
[2018-04-14] MEDS: Sennosides/Docusate Sodium TABLET PO SCH ×2 (08:44→19:41)
[2018-04-14] MEDS: Cholecalciferol (D-3) 1,000 UNIT TABLET PO SCH (08:44)
[2018-04-14] MEDS: Lactobacillus 1 EACH CAP.SPRINK PO SCH (08:44)
[2018-04-14] MEDS: Piperacillin/Tazobactam 3.375 GM in 0.9 % Sodium Chloride Mini Bag 100 ML IVPB SCH ×2 (08:45→15:23)
[2018-04-14] MEDS: amLODIPine 5 MG TABLET PO SCH (08:45)
[2018-04-14] MEDS ORDERED: Isovue-370 500 ML INFUS..BTL IV ONE (09:20)
[2018-04-14] MEDS ORDERED: Lactulose Oral Soln 20 GM/30 ML UDC PO PRN (09:22)
[2018-04-14] MEDS: Albuterol 2.5 MG/3 ML NEBULIZER IH PRN (09:41)
[2018-04-14] MEDS ORDERED: Isovue-370 500 ML INFUS..BTL PO ONE (12:04)
--- NOTE | 2018-04-14 16:23 | General Surgery Consult Note ---
<Stephanie Islas E - Last Filed: 04/14/18 16:59> Date of Encounter: 04/14/18 Time of Encounter: 16:22 Assessment and Plan (1) Ileus Current Visit: Yes Status: Acute Ileus versus partial small bowel obstruction Begin Reglan 20 mg every 8 hours for 36 hours Increasing Zofran to 4 mg every 4 hours for nausea IV fluids as per primary Nothing by mouth Continue antibiotics as per primary Supportive care We will consider colonoscope later this week, for further testing (2) Colitis Current Visit: Yes Status: Acute CT/CT abd pelvis w iv and oral IMPRESSION: Increased wall thickening involving the distal transverse and descending colon with adjacent inflammatory change, compatible with worsening colitis. Mild distention of the proximal small bowel with gradual tapering to the collapsed distal small bowel. Findings could represent an ileus or an early partial small bowel obstruction. Increased free fluid in the abdomen, likely reactive. Multiple mildly enlarged mesenteric lymph nodes with a 3.8 cm soft tissue mass in the center of the small bowel mesentery. The size and morphology of this mass is concerning for neoplasm (lymphoma versus metastatic disease). The findings were sent to the Radiology Results Communication [facility] at 1:57 pm on 04/14/2018to be communicated to a licensed caregiver. D/ / 04/14/2018 14:29:56 Irwin Jordan MD / lloyd Continue antibiotics as per primary Increase zofran to 4mg every 4 hours as needed for nausea Pain control as per primary IV fluids as per primary Begin Reglan 20 mg every 8 hours Considering colonoscope later in the week, for further investigation Supportive care History of Present Illness Consult date: 04/14/18 Reason for consult: other (Possible small bowel obstruction) Requesting physician: Mckay Mckee History of present illness: Patient presented to the ER on 04/12/18 for abdominal pain and nausea, with dry heaves. No vomiting or diarrhea. She says that the pain is a sharp stabbing pain sometimes but other times it is not so bad. Last bowel movement was on Friday, she said it was soft in consistency compared normal. No blood in the stool, black or tarry stools. She has had changes in bowel habits for a long time, and it has been off and on. Has noticed some bloating. Colonoscopy was 3 years ago and normal. Surgical history includes hysterectomy and back surgery. Interval history includes diabetes, high cholesterol, and hypertension. Has been being treated for colitis, with IV antibiotics Past Med Surg Social Fam HX - Past Medical History Medical history: diabetes, hyperlipidemia, hypertension Psychiatric history: no psych history - Past Surgical History Surgical History: hysterectomy Additional surgical history: back and shoulder sx - Social History Smoking Status: Never smoker Smokeless Tobacco Status: No Alcohol use: none Drug use: none Medications and Allergies Atorvastatin Calcium [Lipitor] 80 mg PO DAILY 12/20/15 [History] Lisinopril-HCTZ 20-12.5 [Prinzide 20-12.5] 1 each PO BID 12/20/15 [History] Metformin HCl [Fortamet] 500 mg PO BID 12/20/15 [History] Trospium Chloride [Trospium Chloride] 20 mg PO BID 12/20/15 [History] Aspirin [Lo-Dose Aspirin EC] 81 mg PO DAILY 04/12/18 [History] Calcium Carbonate [Calcium] 500 mg PO BID 04/12/18 [History] Cholecalciferol (D-3) [Vitamin D] 1,000 unit PO DAILY 04/12/18 [History] Ginkgo Biloba Cornucopia Extract [Ginkgo Biloba] 60 mg PO DAILY 04/12/18 [History] L.acidoph,Paracasei, B.lactis [Probiotic] 1 each PO DAILY 04/12/18 [History] amLODIPine [Norvasc] 10 mg PO DAILY 04/12/18 [History] Albuterol Sulfate [Proair Hfa] 2 puff IH Q6H PRN 04/13/18 [History] Fluticasone Propionate [Flovent Hfa] 1 puff IH BID 04/13/18 [History] 3 Allergy/AdvReac Type Severity Reaction Status Date / Time No Known Allergies Allergy Verified 12/20/15 10:24 Review of Systems All systems PM: The remainder of the systems were reviewed and are negative - Constitutional no chills, no fatigue, no fever(s), no weight loss - Cardiovascular no chest pain, no dyspnea, no irregular heart rhythm - Respiratory no cough, no dyspnea on exertion, no chest congestion - Gastrointestinal as per HPI General Surgery Exam Initial Vital Signs Temp Pulse Resp BP Pulse Ox 97.5 F L 98 20 140/98 98 08/12/18 18:51 04/12/18 18:51 04/12/18 18:51 04/12/18 18:51 04/12/18 18:51 - General physical appearance well developed, well nourished, moderate distress - Respiratory normal expansion, normal respiratory effort, clear to auscultation - Cardiovascular Cardiovascular exam: Present: RRR, no murmurs/rubs/gallops - Abdomen Abdomen general surgery: Present: bowel sounds present, distended, tender Abdominal Tenderness: Present: LLQ, diffusely (Diffusely tender to moderate palpation, lower quadrant tender to palpation.) - Musculoskeletal Present: normal posture - Psychiatric Psychiatric general surgery: Present: oriented to person, oriented to place, oriented to time Exam Initial Vital Signs Temp Pulse Resp BP Pulse Ox 97.5 F L 98 20 140/98 98 04/12/18 18:51 04/12/18 18:51 04/12/18 18:51 04/12/18 18:51 04/12/18 18:51 Results - Labs 04/14/18 05:18 04/14/18 05:18 Abnormal lab results WBC 17.8 K/mcL (4.3-11.1) H 04/14/18 05:18 RBC 3.30 M/mcL (3.82-4.97) L 04/14/18 05:18 Hgb 10.1 g/dL (11.5-15.4) L D 04/14/18 05:18 Hct 29.5 % (35.3-44.9) L 04/14/18 05:18 Band Neutrophils % 16.0 % (0-4) H 04/14/18 05:18 Neutrophils # 15.3 K/mcL (1.6-8.9) H 04/14/18 05:18 Sodium 134 mEq/L (136-145) L 04/14/18 05:18 Potassium 3.3 mEq/L (3.5-5.1) L 04/14/18 05:18 Carbon Dioxide 21 mEq/L (23-29) L 04/14/18 05:18 Est GFR (Non-Af Amer) 55 (> 60) L 04/14/18 05:18 Glucose 160 mg/dL (70-105) H 04/14/18 05:18 POC Glucose 192 mg/dL (70-99) H 04/14/18 12:24 Hemoglobin A1c 7.3 % (-5.6) H 04/13/18 12:38 Calcium 8.0 mg/dL (8.6-10.3) L 04/14/18 05:18 Amylase 336 Units/L (29-103) H 04/12/18 19:06 Urine Clarity Turbid (Clear) A 04/12/18 19:15 Urine Protein 100 mg/dL (Neg-Trace) H 04/12/18 19:15 Urine Blood Small (Negative) H 04/12/18 19:15 Urine Nitrite Positive (Negative) A 04/12/18 19:15 Ur Leukocyte Esterase Large (Negative) H 04/12/18 19:15 Urine Microscopic RBC 5-15 per hpf (0-3) H 04/12/18 19:15 Urine Microscopic WBC TNTC per hpf (0-3) H 04/12/18 19:15 Ur Transition Epith Cell Moderate per hpf (None-Few) H 04/12/18 19:15 Urine Bacteria Moderate per hpf (None-Few) H 04/12/18 19:15 Ur Culture Indicated? YES (NO) A 04/12/18 19:15 Diabetes panel 04/14/18 Range/Units 05:18 Sodium 134 L (136-145) mEq/L Potassium 3.3 L (3.5-5.1) mEq/L Chloride 105 (98-107) mEq/L Carbon Dioxide 21 L (23-29) mEq/L BUN 23 (8-23) mg/dL Creatinine 0.97 (0.60-1.20) mg/dL Glucose 160 H (70-105) mg/dL Calcium 8.0 L (8.6-10.3) mg/dL Calcium panel 04/14/18 Range/Units 05:18 Calcium 8.0 L (8.6-10.3) mg/dL Pituitary panel 04/14/18 Range/Units 05:18 Sodium 134 L (136-145) mEq/L Potassium 3.3 L (3.5-5.1) mEq/L Chloride 105 (98-107) mEq/L Carbon Dioxide 21 L (23-29) mEq/L BUN 23 (8-23) mg/dL Creatinine 0.97 (0.60-1.20) mg/dL Glucose 160 H (70-105) mg/dL Calcium 8.0 L (8.6-10.3) mg/dL Adrenal panel 04/14/18 Range/Units 05:18 Sodium 134 L (136-145) mEq/L Potassium 3.3 L (3.5-5.1) mEq/L Chloride 105 (98-107) mEq/L Carbon Dioxide 21 L (23-29) mEq/L BUN 23 (8-23) mg/dL Creatinine 0.97 (0.60-1.20) mg/dL Glucose 160 H (70-105) mg/dL Calcium 8.0 L (8.6-10.3) mg/dL All other labs normal. Consult Discharge Plan - Plan Referrals: Ashleigh Quveedo, POWDER OPERATOR [Primary Care Provider] - <Olegario Jaramillo - Last Filed: 04/15/18 15:09> Date of Encounter: 04/14/18 Review of Systems All systems PM: The remainder of the systems were reviewed and are negative General Surgery Exam Initial Vital Signs Temp Pulse Resp BP Pulse Ox 97.5 F L 98 20 140/98 98 04/12/18 18:51 04/12/18 18:51 04/12/18 18:51 04/12/18 18:51 04/12/18 18:51 Exam Initial Vital Signs Temp Pulse Resp BP Pulse Ox 97.5 F L 98 20 140/98 98 04/12/18 18:51 04/12/18 18:51 04/12/18 18:51 04/12/18 18:51 04/12/18 18:51 Results - Labs 04/15/18 05:25 04/15/18 05:25 Abnormal lab results WBC 16.6 K/mcL (4.3-11.1) H 04/15/18 05:25 RBC 3.43 M/mcL (3.82-4.97) L 04/15/18 05:25 Hgb 10.0 g/dL (11.5-15.4) L 04/15/18 05:25 Hct 29.3 % (35.3-44.9) L 04/15/18 05:25 Band Neutrophils % 16.0 % (0-4) H 04/14/18 05:18 Neutrophils # 13.1 K/mcL (1.6-8.9) H 04/15/18 05:25 Monocytes # 1.4 K/mcL (0.0-1.3) H 04/15/18 05:25 Reactive Lymphocytes Present (Not Present) A 04/15/18 05:25 Sodium 131 mEq/L (136-145) L 04/15/18 05:25 Potassium 3.2 mEq/L (3.5-5.1) L 04/15/18 05:25 Carbon Dioxide 21 mEq/L (23-29) L 04/15/18 05:25 Est GFR (Non-Af Amer) 57 (> 60) L 04/15/18 05:25 Glucose 194 mg/dL (70-105) H 04/15/18 05:25 POC Glucose 157 mg/dL (70-99) H 04/15/18 12:43 Hemoglobin A1c 7.3 % (-5.6) H 04/13/18 12:38 Phosphorus 2.1 mg/dL (2.7-4.5) L 04/15/18 05:25 Amylase 336 Units/L (29-103) H 04/12/18 19:06 Urine Clarity Turbid (Clear) A 04/12/18 19:15 Urine Protein 100 mg/dL (Neg-Trace) H 04/12/18 19:15 Urine Blood Small (Negative) H 04/12/18 19:15 Urine Nitrite Positive (Negative) A 04/12/18 19:15 Ur Leukocyte Esterase Large (Negative) H 04/12/18 19:15 Urine Microscopic RBC 5-15 per hpf (0-3) H 04/12/18 19:15 Urine Microscopic WBC TNTC per hpf (0-3) H 04/12/18 19:15 Ur Transition Epith Cell Moderate per hpf (None-Few) H 04/12/18 19:15 Urine Bacteria Moderate per hpf (None-Few) H 04/12/18 19:15 Ur Culture Indicated? YES (NO) A 04/12/18 19:15 Diabetes panel 04/15/18 Range/Units 05:25 Sodium 131 L (136-145) mEq/L Potassium 3.2 L (3.5-5.1) mEq/L Chloride 102 (98-107) mEq/L Carbon Dioxide 21 L (23-29) mEq/L BUN 21 (8-23) mg/dL Creatinine 0.94 (0.60-1.20) mg/dL Glucose 194 H (70-105) mg/dL Calcium 8.6 (8.6-10.3) mg/dL Calcium panel 04/15/18 Range/Units 05:25 Calcium 8.6 (8.6-10.3) mg/dL Phosphorus 2.1 L (2.7-4.5) mg/dL Pituitary panel 04/15/18 Range/Units 05:25 Sodium 131 L (136-145) mEq/L Potassium 3.2 L (3.5-5.1) mEq/L Chloride 102 (98-107) mEq/L Carbon Dioxide 21 L (23-29) mEq/L BUN 21 (8-23) mg/dL Creatinine 0.94 (0.60-1.20) mg/dL Glucose 194 H (70-105) mg/dL Calcium 8.6 (8.6-10.3) mg/dL Adrenal panel 04/15/18 Range/Units 05:25 Sodium 131 L (136-145) mEq/L Potassium 3.2 L (3.5-5.1) mEq/L Chloride 102 (98-107) mEq/L Carbon Dioxide 21 L (23-29) mEq/L BUN 21 (8-23) mg/dL Creatinine 0.94 (0.60-1.20) mg/dL Glucose 194 H (70-105) mg/dL Calcium 8.6 (8.6-10.3) mg/dL All other labs normal. - Attending Attestation I examined this patient and my medical decision-making was reviewed with the Resident Physician. I agree with the documented findings, disposition and treatment plan as described except to the extent set forth below. The patient was seen and evaluated with resident. Consultation is provided. The patient has diffuse small bowel dilatation consistent with ileus. There does not appear to be a transition point. She is having a good deal of nausea and vomiting. Ileus likely secondary to colitis or urinary tract infection both which are being treated this point. We would like to continue with nasal gastric tube drainage if the patient has nausea and vomiting. We would recommend bowel rest for at least 36-48 hours prior to any further evaluation. We will continue to follow along with you. Her abdominal examination is negative Olegario Jaramillo MD FACS
[2018-04-14] MEDS: D5% in 0.45% NACL 1,000 ML IVC SCH (16:32)
[2018-04-14] MEDS: Metoclopramide 10 MG/2 ML VIAL IVP SCH (17:21)
[2018-04-15] MEDS: Piperacillin/Tazobactam 3.375 GM in 0.9 % Sodium Chloride Mini Bag 100 ML IVPB SCH ×3 (00:18→15:52)
[2018-04-15] MEDS: Metoclopramide 10 MG/2 ML VIAL IVP SCH ×4 (00:18→17:43)
[2018-04-15] MEDS: Insulin LISPRO 300 UNITS/3 ML VIAL SQ SCH ×4 (00:40→17:25)
[2018-04-15] MEDS: D5% in 0.45% NACL 1,000 ML IVC SCH (06:10)
[2018-04-15] MEDS: *HR* Heparin 5,000 UNIT/ML VIAL SQ SCH ×2 (06:11→17:43)
[2018-04-15] MEDS ORDERED: Chloraseptic Spray 177 ML BOTTLE MM PRN (06:17)
[2018-04-15 06:18] LABS: Basophils % 0.1 %; Eosinophils % 0.1 %; Hematocrit 29.3 % (35.3-44.9); Immature Granulocytes % 0.6 % (0-4); Lymphocytes % 11.9 %; Mean Corpuscular HGB Conc 34.1 g/dL (31.6-35.5); Mean Corpuscular Hemoglobin 29.2 pg (28.0-33.3); Mean Corpuscular Volume 85.4 fL (83.0-100.0); Mean Platelet Volume 10.4 fL (9.4-12.4); Monocytes # 1.4 K/mcL (0.0-1.3); Monocytes % 8.3 %; Neutrophils # 13.1 K/mcL (1.6-8.9); Platelet Count 251 K/mcL (140-400); Red Blood Count 3.43 M/mcL (3.82-4.97); Red Cell Distribution Width 13.8 % (11.5-14.5)
[2018-04-15 06:36] LABS: BUN/Creatinine Ratio 22 (6-26); Blood Urea Nitrogen 21 mg/dL (8-23); Calcium 8.6 mg/dL (8.6-10.3); Carbon Dioxide 21 mEq/L (23-29); Chloride 102 mEq/L (98-107); Glucose 194 mg/dL (70-105); Magnesium 1.7 mg/dL (1.6-2.6); Osmolality,Calculated 280 (280-300); Phosphorous 2.1 mg/dL (2.7-4.5); Potassium 3.2 mEq/L (3.5-5.1); Sodium 131 mEq/L (136-145); eGFR For Non-African Americans 57 (> 60)
[2018-04-15 06:48] LABS: Platelet Estimate Normal (Normal); Reactive Lymphocytes Present (Not Present)
[2018-04-15] MEDS: Beclomethasone 80mcg MDI IH SCH ×2 (07:40→19:57)
[2018-04-15] MEDS: Lactobacillus 1 EACH CAP.SPRINK PO SCH (07:51)
[2018-04-15] MEDS: Aspirin Enteric Coated 81 MG Tablet PO SCH (07:51)
[2018-04-15] MEDS: Sennosides/Docusate Sodium TABLET PO SCH ×2 (07:51→20:27)
[2018-04-15] MEDS: amLODIPine 5 MG TABLET PO SCH (07:51)
--- NOTE | 2018-04-15 07:51 | Internal Med Progress Note ---
Hospitalist Progress Note - Encounter Date of Encounter: 04/15/18 Time of Encounter: 07:40 - Subjective Interval History: No acute events overnight - Exam Vitals: Temp Pulse Resp BP Pulse Ox 98.2 F 109 16 136/76 96 04/15/18 07:31 04/15/18 07:31 04/15/18 07:40 04/15/18 07:31 04/15/18 07:40 Exam: Gen - Awake, alert, no acute distress HEENT - NCAT, PERRLA, EOMI, hearing grossly intact, oropharynx benign CV - Tachycardic, regular rhythm, normal S1 and S2, no M/R/G, no BLE edema Resp - Normal WOB, CTAB, no W/R/R GI - Soft, mildly distended, moderate TTP diffusely across abdomen with some guarding but no rebound, hypoactive bowel sounds, no HSP Skin - Warm, dry, no rashes/lesions/ulcers Psych - Normal mood and affect, no depression or anxiety - Assessment and Plan (1) Sepsis Current Visit: Yes Status: Acute Assessment and Plan: Still with tachycardia and worsening leukocytosis. Patient states that she is subjectively feeling better. Sources likely colitis and UTI. Continue IV fluids. Antibiotics broadened to zosyn 2/2 to worsening leukocytosis. Follow up blood cultures (2) Small bowel obstruction Current Visit: Yes Status: Acute Assessment and Plan: CT scan with IV contrast done today showed Mild distention of the proximal small bowel with gradual tapering to the collapsed distal small bowel. Findings could represent an ileus or an early partial small bowel obstruction. Surgery has been consulted for further evaluation. NPO Surgery following. NPO and NG tube in place. On zofran and reglan. Plan gastrografin study tomorrow based on clinical appearance and plan for colonoscopy later this week (3) Abdominal mass Current Visit: Yes Status: Acute Assessment and Plan: CT scan with IV contrast showed soft tissue mass in the mesentery measuring 3.8 x 3.1 cm. There are several mildly enlarged mesenteric lymph nodes. Oncology consulted and appreciate recommendations (4) UTI (urinary tract infection) Current Visit: Yes Status: Acute Assessment and Plan: Continue antibiotics as per above. Luna catheter removed today. Follow up on urine culture. (5) Lactic acidosis Current Visit: Yes Status: Acute Assessment and Plan: Management as per above. (6) Colitis Current Visit: Yes Status: Acute Assessment and Plan: Antibiotics as per above. Still with significant abdominal pain. Will monitor closely and order further imaging if necessary. CT abdomen on showed left colon wall thickening and diverticulosis (7) Acute kidney injury Current Visit: Yes Status: Acute Assessment and Plan: Improved. Continue IVF as per above. Recheck BMP in AM. (8) Constipation Current Visit: Yes Status: Suspected Assessment and Plan: No BM in last 24 hours despite urge. Give miralax once. Start senna/docusate BID. Continue Dulcolax suppository PRN. Resumed home probiotic today. Treating colitis as per above. (9) DVT prophylaxis Current Visit: Yes Status: Acute Assessment and Plan: Continue SQ heparin. (10) Type 2 diabetes mellitus with hyperglycemia Current Visit: Yes Status: Chronic Assessment and Plan: Mild hyperglycemia. Will start accuchecks and low dose SSI QID AC/HS with initiation of clear liquid diet. (11) Hypertension Current Visit: Yes Status: Chronic Assessment and Plan: Currently borderline hypotensive. Hold home medications. Monitor vitals closely. (12) Hypokalemia Current Visit: Yes Status: Acute Assessment and Plan: Replaced - Time Spent with Patient Total time spent is greater than 50% in coordination of care (as documented) at patient's floor/unit and/or counseling patient: Internal Medicine: Result - Labs CBC & Chem 7: 04/15/18 05:25 04/15/18 05:25 Labs: Short CBC 04/15/18 Range/Units 05:25 WBC 16.6 H (4.3-11.1) K/mcL Hgb 10.0 L (11.5-15.4) g/dL Hct 29.3 L (35.3-44.9) % Plt Count 251 (140-400) K/mcL Neutrophils # 13.1 H (1.6-8.9) K/mcL BMP 04/15/18 05:25 Sodium 131 L Potassium 3.2 L Chloride 102 Carbon Dioxide 21 L BUN 21 Creatinine 0.94 Glucose 194 H Calcium 8.6 - Impressions Impressions Abdomen/Pelvis CT 04/14/18 12:00 IMPRESSION: Increased wall thickening involving the distal transverse and descending colon with adjacent inflammatory change, compatible with worsening colitis. Mild distention of the proximal small bowel with gradual tapering to the collapsed distal small bowel. Findings could represent an ileus or an early partial small bowel obstruction. Increased free fluid in the abdomen, likely reactive. Multiple mildly enlarged mesenteric lymph nodes with a 3.8 cm soft tissue mass in the center of the small bowel mesentery. The size and morphology of this mass is concerning for neoplasm (lymphoma versus metastatic disease). The findings were sent to the Radiology Results Communication Center at 1:57 pm on 04/14/2018to be communicated to a licensed caregiver. D/ / 04/14/2018 14:29:56 Irwin Jordan MD / lloyd Interpreting Provider: Irwin Jordan MD KUB X-Ray 04/15/18 00:12 IMPRESSION: Intragastric positioning of enteric tube. D/ / Robert Baldwin / Robert Baldwin Interpreting Provider: Robert Baldwin - VTE Documentation of Mechanical Device: Intermittent pneumatic compression device Consult Discharge Plan - Plan Referrals: Ashleigh Quevedo ANGLE DOZER OPERATOR [Primary Care Provider] - (1) Sepsis Qualifiers: Sepsis type: sepsis due to unspecified organism Qualified Code(s): A41.9 - Sepsis, unspecified organism (3) Abdominal mass Qualifiers: Abdominal location: other location Qualified Code(s): R19.09 - Other intra- abdominal and pelvic swelling, mass and lump (4) UTI (urinary tract infection) Qualifiers: Urinary tract infection type: acute cystitis Hematuria presence: with hematuria Qualified Code(s): N30.01 - Acute cystitis with hematuria (8) Constipation Qualifiers: Constipation type: unspecified constipation type Qualified Code(s): K59.00 - Constipation, unspecified (10) Type 2 diabetes mellitus with hyperglycemia Qualifiers: Diabetes mellitus vermin exterminator insulin use: without penitentiary use Qualified Code (s): E11.65 - Type 2 diabetes mellitus with hyperglycemia (11) Hypertension Qualifiers: Hypertension type: essential hypertension Qualified Code(s): I10 - Essential (primary) hypertension
[2018-04-15] MEDS: Cholecalciferol (D-3) 1,000 UNIT TABLET PO SCH (07:52)
--- NOTE | 2018-04-15 09:10 | General Surgery Progress Note ---
<Stephanie Islas E - Last Filed: 04/15/18 09:07> Date of Encounter: 04/15/18 Time of Encounter: 09:07 - Assessment and Plan (1) Ileus Current Visit: Yes Status: Acute Ileus first partial small bowel obstruction Continue Reglan 20 mg every 8 hours total of 36 hours Zofran 4 mg every 4 hours for nausea IV fluids as per primary Nothing by mouth Continue NG tube to intermediate wall suction Continue antibiotics as per primary Supportive care We will consider small bowel follow-through with Gastrografin tomorrow based on clinical appearance (2) Colitis Current Visit: Yes Status: Acute Continue antibiotics as per primary Zofran 4 mg every 4 hours as needed for nausea Pain control as per primary IV fluids as per primary Continue Reglan 20 mg every 8 hours for a total of 36 hours Supportive care Consider small bowel follow-through with Gastrografin tomorrow depending on clinical picture Subjective Patient reports: still having pain, pain is less, no flatus (Patient states she still having some pain, but her pain is less. She states her nausea is doing better. She has not had any bowel movements or passed any gas today.), no bowel movement Objective Vital Signs - Last 8 Hours Temp Pulse Resp BP Pulse Ox 04/15/18 08:29 96 04/15/18 07:40 16 96 04/15/18 07:31 98.2 F 109 20 136/76 95 04/15/18 04:07 98.4 F 109 17 125/71 92 Intake and Output 04/14/18 04/15/18 04/15/18 23:59 07:59 15:59 Intake Total 100 / 100 1100 / 1100 0 / 0 Output Total 400 / 400 700 / 700 600 / 600 Balance -300 / -300 400 / 400 -600 / -600 Intake: IV Fluids 100 / 100 1100 / 1100 D5% And 0.45% Nacl 1000 Ml Bag 1000 / 1000 1,000 ML @ 75 mls/hr IVC . [id number] [facility] Rx#:[id number] Zosyn 3.375 GM In 0.9 % Sodium 100 / 100 100 / 100 Chloride (Mini-Bag +) 100 ML @ 25 mls/hr IVPB Q8HR [facility]ING Rx#: [id number] Oral 0 / 0 Output: Urine 100 / 100 0 / 0 Emesis 300 / 300 Gastric Tube Lavage Amount 600 / 600 Right Nare 600 / 600 Gastric Drainage 700 / 700 Right Nare 700 / 700 Other: Weight 77.8 kg Blood Glucose* 173 192 Patient Weight 04/15/18 23:59 Weight 77.8 kg - General physical appearance well developed, well nourished, moderate distress - Respiratory normal expansion, normal respiratory effort, clear to auscultation - Cardiovascular Cardiovascular exam: Present: NR, tachycardia, no murmurs/rubs/gallops - Abdomen Abdomen: Present: tympanic, distended, tender. Absent: bowel sounds present Abdominal Tenderness: LLQ - Integumentary no rash, no growths, no abnormal pigmentation - Musculoskeletal normal posture - Psychiatric oriented to time, oriented to person, oriented to place - Labs 04/15/18 05:25 04/15/18 05:25 Diabetes panel 04/15/18 Range/Units 05:25 Sodium 131 L (136-145) mEq/L Potassium 3.2 L (3.5-5.1) mEq/L Chloride 102 (98-107) mEq/L Carbon Dioxide 21 L (23-29) mEq/L BUN 21 (8-23) mg/dL Creatinine 0.94 (0.60-1.20) mg/dL Glucose 194 H (70-105) mg/dL Calcium 8.6 (8.6-10.3) mg/dL Calcium panel 04/15/18 Range/Units 05:25 Calcium 8.6 (8.6-10.3) mg/dL Phosphorus 2.1 L (2.7-4.5) mg/dL Pituitary panel 04/15/18 Range/Units 05:25 Sodium 131 L (136-145) mEq/L Potassium 3.2 L (3.5-5.1) mEq/L Chloride 102 (98-107) mEq/L Carbon Dioxide 21 L (23-29) mEq/L BUN 21 (8-23) mg/dL Creatinine 0.94 (0.60-1.20) mg/dL Glucose 194 H (70-105) mg/dL Calcium 8.6 (8.6-10.3) mg/dL Adrenal panel 04/15/18 Range/Units 05:25 Sodium 131 L (136-145) mEq/L Potassium 3.2 L (3.5-5.1) mEq/L Chloride 102 (98-107) mEq/L Carbon Dioxide 21 L (23-29) mEq/L BUN 21 (8-23) mg/dL Creatinine 0.94 (0.60-1.20) mg/dL Glucose 194 H (70-105) mg/dL Calcium 8.6 (8.6-10.3) mg/dL - VTE Documentation of Mechanical Device: Intermittent pneumatic compression device Consult Discharge Plan - Plan Referrals: Quevedo,Ashleigh Bruce SUPPORT SPECIALIST [Primary Care Provider] - <Olegario Jaramillo - Last Filed: 04/15/18 15:17> Date of Encounter: 04/15/18 Objective Vital Signs - Last 8 Hours Temp Pulse Resp BP Pulse Ox 04/15/18 10:42 97.8 F 105 17 136/81 95 04/15/18 08:29 96 04/15/18 07:40 16 96 04/15/18 07:31 98.2 F 109 20 136/76 95 Intake and Output 04/14/18 04/15/18 04/15/18 23:59 07:59 15:59 Intake Total 100 / 100 1100 / 1100 100 / 100 Output Total 400 / 400 700 / 700 900 / 900 Balance -300 / -300 400 / 400 -800 / -800 Intake: IV Fluids 100 / 100 1100 / 1100 100 / 100 D5% And 0.45% Nacl 1000 Ml Bag 1000 / 1000 1,000 ML @ 75 mls/hr IVC . [id number] [facility] Rx#:[id number] Zosyn 3.375 GM In 0.9 % Sodium 100 / 100 100 / 100 Chloride (Mini-Bag +) 100 ML @ 25 mls/hr IVPB Q8HR [facility] Rx#: [id number] Potassium Chloride 10 mEq/100mL 100 / 100 10 meq In 100 ml @ 100 mls/hr IVPB Q1H [facility] Rx#:[id number] Oral 0 / 0 Output: Urine 100 / 100 300 / 300 Emesis 300 / 300 Gastric Tube Lavage Amount 600 / 600 Right Nare 600 / 600 Gastric Drainage 700 / 700 Right Nare 700 / 700 Other: Weight 77.8 kg Blood Glucose* 173 192 157 Patient Weight 04/15/18 23:59 Weight 77.8 kg - Labs 04/15/18 05:25 04/15/18 05:25 Diabetes panel 04/15/18 Range/Units 05:25 Sodium 131 L (136-145) mEq/L Potassium 3.2 L (3.5-5.1) mEq/L Chloride 102 (98-107) mEq/L Carbon Dioxide 21 L (23-29) mEq/L BUN 21 (8-23) mg/dL Creatinine 0.94 (0.60-1.20) mg/dL Glucose 194 H (70-105) mg/dL Calcium 8.6 (8.6-10.3) mg/dL Calcium panel 04/15/18 Range/Units 05:25 Calcium 8.6 (8.6-10.3) mg/dL Phosphorus 2.1 L (2.7-4.5) mg/dL Pituitary panel 04/15/18 Range/Units 05:25 Sodium 131 L (136-145) mEq/L Potassium 3.2 L (3.5-5.1) mEq/L Chloride 102 (98-107) mEq/L Carbon Dioxide 21 L (23-29) mEq/L BUN 21 (8-23) mg/dL Creatinine 0.94 (0.60-1.20) mg/dL Glucose 194 H (70-105) mg/dL Calcium 8.6 (8.6-10.3) mg/dL Adrenal panel 04/15/18 Range/Units 05:25 Sodium 131 L (136-145) mEq/L Potassium 3.2 L (3.5-5.1) mEq/L Chloride 102 (98-107) mEq/L Carbon Dioxide 21 L (23-29) mEq/L BUN 21 (8-23) mg/dL Creatinine 0.94 (0.60-1.20) mg/dL Glucose 194 H (70-105) mg/dL Calcium 8.6 (8.6-10.3) mg/dL - Attending Attestation I examined this patient and my medical decision-making was reviewed with the Resident Physician. I agree with the documented findings, disposition and treatment plan as described except to the extent set forth below. The patient is seen and evaluated on morning rounds with resident. She developed nausea and vomiting last evening. A nasogastric tube was placed. She continues to be nauseated today. On physical examination there are absolutely no bowel sounds. I still believe this to be ileus. We will place her bowel rest for 24 hours and perform small bowel follow-through tomorrow. Olegario Jaramillo MD FACS
--- NOTE | 2018-04-15 11:05 | Oncology Inp Consult Note ---
Date of Encounter: 04/14/18 Time of Encounter: 16:30 Assessment and Plan (1) UTI (urinary tract infection) Status: Acute Assessment and plan: now on zosyn which I think is appropriate. Culture is positive for bacteria. Awaiting speciation. The worsening wBC count and new bandemia and worsening tachycardia and temperature are concerning. Broadening abx as above makes sense. I doubt it is from the UTI but potentially from the worsening colitis. Qualifiers: Urinary tract infection type: acute cystitis Hematuria presence: with hematuria Qualified Code(s): N30.01 - Acute cystitis with hematuria (2) Colitis Status: Acute Assessment and plan: Defer to surgery regarding this matter. Agree with change in abx to zosyn. Agree with ultimate need for colonoscopic evaluation. (3) Abdominal mass Status: Acute Assessment and plan: Given the proximity of the abdominal mass to the colon (it is far away and more near the small bowel), I doubt it has anything to do with her current clinical situation. It also appears to be a conglomeration of Lymph nodes which might suggest a lymphoma. She will, of course, need further w/u, but at this point, she has more pressing issues. We will need ultimately a PET scan and then consider bx to determine exactly what the potential neoplasm might be. Qualifiers: Abdominal location: other location Qualified Code(s): R19.09 - Other intra- abdominal and pelvic swelling, mass and lump - Data of Consult Patient: new to practice Consult date: 04/14/18 Requesting Physician: Ramón Monreal MD Primary Care Provider: Ashleigh Quevedo CNP - Consult Narrative Reason for consult: mesenteric mass History of present illness: Ms. Cook is a 82 year old female with PMH significant for diabetes, HTN, hyperlipidemiam and obesity, and was in [facility] until the day of admission when she developed sudden onset abdominal pain, nausea, vomiting, and cold sweats. She was brought to the ER where she was found to have a UTI and had a CT scan w/o contrast that showed colitis. She was appropriately started on cipro/flagyl. However, over the ensuing 2 days, she had worsening abdominal distension, significant obstipation, worsening tachycardia, worsening hypoxia (which is new), increasing WBC count, and a new bandemia at which point she had a CT scan with IV contrast which demonstrated potentially worsening colitis as well as an intraabdominal mass near the mesentery which is concerning for either metastatic disease or primary neoplasm. We are consulted regarding this abdominal mass. Past Med Surg Social Fam HX - Past Medical History Medical history: diabetes, hyperlipidemia, hypertension Psychiatric history: no psych history - Past Surgical History Surgical History: hysterectomy Additional surgical history: back and shoulder sx - Social History Smoking Status: Never smoker Smokeless Tobacco Status: No Alcohol use: none Drug use: none Medications and Allergies Atorvastatin Calcium [Lipitor] 80 mg PO DAILY 12/20/15 [History] Lisinopril-HCTZ 20-12.5 [Prinzide 20-12.5] 1 each PO BID 12/20/15 [History] Metformin HCl [Fortamet] 500 mg PO BID 12/20/15 [History] Trospium Chloride [Trospium Chloride] 20 mg PO BID 12/20/15 [History] Aspirin [Lo-Dose Aspirin EC] 81 mg PO DAILY 04/12/18 [History] Calcium Carbonate [Calcium] 500 mg PO BID 04/12/18 [History] Cholecalciferol (D-3) [Vitamin D] 1,000 unit PO DAILY 04/12/18 [History] Ginkgo Biloba [place] Extract [Ginkgo Biloba] 60 mg PO DAILY 04/12/18 [History] L.acidoph,Paracasei, B.lactis [Probiotic] 1 each PO DAILY 04/12/18 [History] amLODIPine [Norvasc] 10 mg PO DAILY 04/12/18 [History] Albuterol Sulfate [Proair Hfa] 2 puff IH Q6H PRN 04/13/18 [History] Fluticasone Propionate [Flovent Hfa] 1 puff IH BID 04/13/18 [History] 3 Allergy/AdvReac Type Severity Reaction Status Date / Time No Known Allergies Allergy Verified 12/20/15 10:24 Constitutional: Present: chills. Absent: fever(s) Cardiovascular: Absent: chest pain Respiratory: Present: as per HPI Gastrointestinal: Present: as per HPI Genitourinary: Present: as per HPI Musculoskeletal: Absent: abnormal gait Neurological: Present: weakness. Absent: abnormal gait Oncology - Exam - Constitutional Vitals: Temp Pulse Resp BP Pulse Ox 97.8 F 105 17 136/81 95 04/15/18 10:42 04/15/18 10:42 04/15/18 10:42 04/15/18 10:42 04/15/18 10:42 General appearance: cooperative, mild distress, no no acute distress - Eye Eye exam: Present: EOMI - Neck Neck exam: Present: normal inspection - Respiratory Respiratory exam: Present: decreased breath sounds - Cardiovascular Cardiovascular exam: Present: tachycardia - GI/Abdominal GI/Abdominal exam: Present: distended, hypoactive bowel sounds, tenderness - Neurological Exam Neurological exam: Present: alert, oriented X3 Oncology - Results Labs: 3 04/15/18 04/15/18 04/15/18 05:25 05:25 00:37 WBC 16.6 H RBC 3.43 L Hgb 10.0 L Hct 29.3 L MCV 85.4 MCH 29.2 MCHC 34.1 RDW 13.8 Plt Count 251 MPV 10.4 Immature Gran % 0.6 Seg Neutrophils % 79.0 Band Neutrophils % Lymphocytes % 11.9 Monocytes % 8.3 Eosinophils % 0.1 Basophils % 0.1 Neutrophils # 13.1 H Lymphocytes # 2.0 Monocytes # 1.4 H Eosinophils # 0.0 Basophils # 0.0 Reactive Lymphocytes Present A Platelet Estimate Normal Sodium 131 L Potassium 3.2 L Chloride 102 Carbon Dioxide 21 L BUN 21 Creatinine 0.94 Est GFR ( Amer) > 60 Est GFR (Non-Af Amer) 57 L BUN/Creatinine Ratio 22 Glucose 194 H POC Glucose 247 H Est Mean Plasma Glucose Hemoglobin A1c Calculated Osmolality 280 Lactic Acid Calcium 8.6 Phosphorus 2.1 L Magnesium 1.7 3 04/14/18 04/14/18 04/14/18 17:37 12:24 11:09 WBC RBC Hgb Hct MCV MCH MCHC RDW Plt Count MPV Immature Gran % Seg Neutrophils % Band Neutrophils % Lymphocytes % Monocytes % Eosinophils % Basophils % Neutrophils # Lymphocytes # Monocytes # Eosinophils # Basophils # Reactive Lymphocytes Platelet Estimate Sodium Potassium Chloride Carbon Dioxide BUN Creatinine Est GFR ( Amer) Est GFR (Non-Af Amer) BUN/Creatinine Ratio Glucose POC Glucose 173 H 192 H 203 H Est Mean Plasma Glucose Hemoglobin A1c Calculated Osmolality Lactic Acid Calcium Phosphorus Magnesium 3 04/14/18 04/14/18 04/14/18 07:34 05:18 05:18 WBC RBC Hgb Hct MCV MCH MCHC RDW Plt Count MPV Immature Gran % Seg Neutrophils % Band Neutrophils % Lymphocytes % Monocytes % Eosinophils % Basophils % Neutrophils # Lymphocytes # Monocytes # Eosinophils # Basophils # Reactive Lymphocytes Platelet Estimate Sodium 134 L Potassium 3.3 L Chloride 105 Carbon Dioxide 21 L BUN 23 Creatinine 0.97 Est GFR ( Amer) > 60 Est GFR (Non-Af Amer) 55 L BUN/Creatinine Ratio 24 Glucose 160 H POC Glucose 163 H Est Mean Plasma Glucose Hemoglobin A1c Calculated Osmolality 285 Lactic Acid 0.9 Calcium 8.0 L Phosphorus Magnesium 3 04/14/18 04/13/18 04/13/18 05:18 19:35 15:50 WBC 17.8 H RBC 3.30 L Hgb 10.1 L D Hct 29.5 L MCV 89.4 MCH 30.6 MCHC 34.2 RDW 13.7 Plt Count 234 MPV 10.1 Immature Gran % Seg Neutrophils % 70.0 Band Neutrophils % 16.0 H Lymphocytes % 8.0 Monocytes % 6.0 Eosinophils % Basophils % Neutrophils # 15.3 H Lymphocytes # 1.4 Monocytes # 1.1 Eosinophils # Basophils # Reactive Lymphocytes Platelet Estimate Normal Sodium Potassium Chloride Carbon Dioxide BUN Creatinine Est GFR ( Amer) Est GFR (Non-Af Amer) BUN/Creatinine Ratio Glucose POC Glucose 197 H 186 H Est Mean Plasma Glucose Hemoglobin A1c Calculated Osmolality Lactic Acid Calcium Phosphorus Magnesium 3 04/13/18 04/13/18 04/13/18 14:22 12:38 11:19 WBC RBC Hgb Hct MCV MCH MCHC RDW Plt Count MPV Immature Gran % Seg Neutrophils % Band Neutrophils % Lymphocytes % Monocytes % Eosinophils % Basophils % Neutrophils # Lymphocytes # Monocytes # Eosinophils # Basophils # Reactive Lymphocytes Platelet Estimate Sodium Potassium Chloride Carbon Dioxide BUN Creatinine Est GFR ( Amer) Est GFR (Non-Af Amer) BUN/Creatinine Ratio Glucose POC Glucose 269 H Est Mean Plasma Glucose 163 Hemoglobin A1c 7.3 H Calculated Osmolality Lactic Acid 3.1 H Calcium Phosphorus Magnesium 3 04/13/18 04/13/18 04/13/18 07:10 05:04 05:04 WBC RBC Hgb Hct MCV MCH MCHC RDW Plt Count MPV Immature Gran % Seg Neutrophils % Band Neutrophils % Lymphocytes % Monocytes % Eosinophils % Basophils % Neutrophils # Lymphocytes # Monocytes # Eosinophils # Basophils # Reactive Lymphocytes Platelet Estimate Sodium 137 Potassium 4.0 Chloride 108 H Carbon Dioxide 19 L BUN 26 H Creatinine 0.98 Est GFR ( Amer) > 60 Est GFR (Non-Af Amer) 54 L BUN/Creatinine Ratio 27 H Glucose 238 H POC Glucose 250 H Est Mean Plasma Glucose Hemoglobin A1c Calculated Osmolality 297 Lactic Acid 2.6 H Calcium 7.8 L Phosphorus Magnesium 3 04/13/18 04/12/18 05:04 23:28 WBC 20.9 H RBC 4.05 Hgb 11.7 D Hct 35.6 MCV 87.9 MCH 28.9 MCHC 32.9 RDW 13.4 Plt Count 295 MPV 10.0 Immature Gran % 0.5 Seg Neutrophils % 87.0 Band Neutrophils % Lymphocytes % 5.0 Monocytes % 7.4 Eosinophils % 0.0 Basophils % 0.1 Neutrophils # 18.2 H Lymphocytes # 1.0 Monocytes # 1.5 H Eosinophils # 0.0 Basophils # 0.0 Reactive Lymphocytes Platelet Estimate Sodium Potassium Chloride Carbon Dioxide BUN Creatinine Est GFR ( Amer) Est GFR (Non-Af Amer) BUN/Creatinine Ratio Glucose POC Glucose Est Mean Plasma Glucose Hemoglobin A1c Calculated Osmolality Lactic Acid 3.0 H Calcium Phosphorus Magnesium Consult Discharge Plan - Plan Referrals: Ashleigh Quevedo CNP [Primary Care Provider] - Inpatient Charges Provider: Dr. Ángel Saleh Consult Charges: [id number] Medicare: [id number]
[2018-04-16] MEDS: Piperacillin/Tazobactam 3.375 GM in 0.9 % Sodium Chloride Mini Bag 100 ML IVPB SCH ×3 (00:58→14:35)
[2018-04-16] MEDS: Insulin LISPRO 300 UNITS/3 ML VIAL SQ SCH ×4 (01:00→18:27)
[2018-04-16] MEDS: Metoclopramide 10 MG/2 ML VIAL IVP SCH ×4 (01:01→14:36)
[2018-04-16 05:52] LABS: Hemoglobin 10.1 g/dL (11.5-15.4); Mean Corpuscular HGB Conc 33.7 g/dL (31.6-35.5); Mean Corpuscular Hemoglobin 29.1 pg (28.0-33.3); Mean Corpuscular Volume 86.5 fL (83.0-100.0); Platelet Count 285 K/mcL (140-400); Red Blood Count 3.47 M/mcL (3.82-4.97); Red Cell Distribution Width 13.6 % (11.5-14.5)
[2018-04-16 05:53] LABS: Basophils # 0.1 K/mcL (0.0-0.2); Basophils % 0.3 %; Eosinophils # 0.2 K/mcL (0.0-0.6); Eosinophils % 1.6 %; Immature Granulocytes % 1.3 % (0-4); Lymphocytes # 2.2 K/mcL (0.6-4.6); Lymphocytes % 15.1 %; Mean Platelet Volume 10.6 fL (9.4-12.4); Monocytes # 1.5 K/mcL (0.0-1.3); Monocytes % 10.1 %; Neutrophils # 10.5 K/mcL (1.6-8.9); Segmented Neutrophils % 71.6 %
[2018-04-16] MEDS: *HR* Heparin 5,000 UNIT/ML VIAL SQ SCH ×2 (06:02→18:26)
[2018-04-16] MEDS: D5% in 0.45% NACL 1,000 ML IVC SCH (06:03)
[2018-04-16 06:09] LABS: BUN/Creatinine Ratio 23 (6-26); Blood Urea Nitrogen 16 mg/dL (8-23); Calcium 8.4 mg/dL (8.6-10.3); Carbon Dioxide 24 mEq/L (23-29); Chloride 104 mEq/L (98-107); Glucose 160 mg/dL (70-105); Magnesium 1.8 mg/dL (1.6-2.6); Osmolality,Calculated 285 (280-300); Phosphorous 1.9 mg/dL (2.7-4.5); Potassium 3.4 mEq/L (3.5-5.1); Sodium 135 mEq/L (136-145); eGFR For Non-African Americans > 60 (> 60)
[2018-04-16] MEDS: Beclomethasone 80mcg MDI IH SCH ×2 (07:25→20:05)
--- NOTE | 2018-04-16 07:40 | Internal Med Progress Note ---
Hospitalist Progress Note - Encounter Date of Encounter: 04/16/18 Time of Encounter: 07:30 - Subjective Interval History: No acute events overnight - Exam Vitals: Temp Pulse Resp BP Pulse Ox 98.4 F 103 18 142/66 94 04/16/18 07:13 04/16/18 07:13 04/16/18 07:13 04/16/18 07:13 04/16/18 07:13 Exam: Gen - Awake, alert, no acute distress HEENT - NCAT, PERRLA, EOMI, hearing grossly intact, oropharynx benign CV - Tachycardic, regular rhythm, normal S1 and S2, no M/R/G, no BLE edema Resp - Normal WOB, CTAB, no W/R/R GI - Soft, mildly distended, moderate TTP diffusely across abdomen with some guarding but no rebound, hypoactive bowel sounds, NG tube in place Skin - Warm, dry, no rashes/lesions/ulcers Psych - Normal mood and affect, no depression or anxiety - Assessment and Plan (1) Small bowel obstruction Current Visit: Yes Status: Acute Assessment and Plan: CT scan with IV contrast done 04/14 showed mild distention of the proximal small bowel with gradual tapering to the collapsed distal small bowel. Findings could represent an ileus or an early partial small bowel obstruction. Surgery has been consulted for further evaluation. NPO Surgery following. NPO and NG tube in place. On zofran and reglan. Plan gastrografin study this am and plan for colonoscopy later this week (2) Sepsis Current Visit: Yes Status: Acute Assessment and Plan: Still with tachycardia and worsening leukocytosis. Patient states that she is subjectively feeling better. Sources likely colitis and UTI. Continue IV fluids. Antibiotics broadened to zosyn 2/2 to worsening leukocytosis. Follow up blood cultures (3) Abdominal mass Current Visit: Yes Status: Acute Assessment and Plan: CT scan with IV contrast showed soft tissue mass in the mesentery measuring 3.8 x 3.1 cm. There are several mildly enlarged mesenteric lymph nodes. Oncology recommend outpatient PET scan and follow up biopsy (4) UTI (urinary tract infection) Current Visit: Yes Status: Acute Assessment and Plan: Continue antibiotics as per above. Luna catheter removed today. Follow up on urine culture. (5) Lactic acidosis Current Visit: Yes Status: Acute Assessment and Plan: Management as per above. (6) Colitis Current Visit: Yes Status: Acute Assessment and Plan: Antibiotics as per above. Still with significant abdominal pain. Will monitor closely and order further imaging if necessary. CT abdomen on showed left colon wall thickening and diverticulosis (7) Acute kidney injury Current Visit: Yes Status: Acute Assessment and Plan: Improved. Continue IVF as per above. Recheck BMP in AM. (8) Constipation Current Visit: Yes Status: Suspected Assessment and Plan: No BM in last 24 hours despite urge. Give miralax once. Start senna/docusate BID. Continue Dulcolax suppository PRN. Resumed home probiotic today. Treating colitis as per above. (9) DVT prophylaxis Current Visit: Yes Status: Acute Assessment and Plan: Continue SQ heparin. (10) Type 2 diabetes mellitus with hyperglycemia Current Visit: Yes Status: Chronic Assessment and Plan: Mild hyperglycemia. Will start accuchecks and low dose SSI QID AC/HS with initiation of clear liquid diet. (11) Hypertension Current Visit: Yes Status: Chronic Assessment and Plan: Currently borderline hypotensive. Hold home medications. Monitor vitals closely. (12) Hypokalemia Current Visit: Yes Status: Acute Assessment and Plan: Replaced - Time Spent with Patient Total time spent is greater than 50% in coordination of care (as documented) at patient's floor/unit and/or counseling patient: Internal Medicine: Result - Labs CBC & Chem 7: 04/16/18 05:05 04/16/18 05:05 Labs: Short CBC 04/16/18 Range/Units 05:05 WBC 14.7 H (4.3-11.1) K/mcL Hgb 10.1 L (11.5-15.4) g/dL Hct 30.0 L (35.3-44.9) % Plt Count 285 (140-400) K/mcL Neutrophils # 10.5 H (1.6-8.9) K/mcL BMP 04/16/18 05:05 Sodium 135 L Potassium 3.4 L Chloride 104 Carbon Dioxide 24 BUN 16 Creatinine 0.71 Glucose 160 H Calcium 8.4 L - Impressions Impressions Abdomen/Pelvis CT 04/14/18 12:00 IMPRESSION: Increased wall thickening involving the distal transverse and descending colon with adjacent inflammatory change, compatible with worsening colitis. Mild distention of the proximal small bowel with gradual tapering to the collapsed distal small bowel. Findings could represent an ileus or an early partial small bowel obstruction. Increased free fluid in the abdomen, likely reactive. Multiple mildly enlarged mesenteric lymph nodes with a 3.8 cm soft tissue mass in the center of the small bowel mesentery. The size and morphology of this mass is concerning for neoplasm (lymphoma versus metastatic disease). The findings were sent to the [facility]iology [facility] at 1:57 pm on 04/14/2018to be communicated to a licensed caregiver. D/ / 04/14/2018 14:29:56 Irwin Jordan MD / lloyd Interpreting Provider: Irwin Jordan MD - VTE Documentation of Mechanical Device: Intermittent pneumatic compression device Consult Discharge Plan - Plan Referrals: Ashleigh Quevedo CNP [Primary Care Provider] - (2) Sepsis Qualifiers: Sepsis type: sepsis due to unspecified organism Qualified Code(s): A41.9 - Sepsis, unspecified organism (3) Abdominal mass Qualifiers: Abdominal location: other location Qualified Code(s): R19.09 - Other intra- abdominal and pelvic swelling, mass and lump (4) UTI (urinary tract infection) Qualifiers: Urinary tract infection type: acute cystitis Hematuria presence: with hematuria Qualified Code(s): N30.01 - Acute cystitis with hematuria (8) Constipation Qualifiers: Constipation type: unspecified constipation type Qualified Code(s): K59.00 - Constipation, unspecified (10) Type 2 diabetes mellitus with hyperglycemia Qualifiers: Diabetes mellitus termite treater helper insulin use: without termite treater helper use Qualified Code (s): E11.65 - Type 2 diabetes mellitus with hyperglycemia (11) Hypertension Qualifiers: Hypertension type: essential hypertension Qualified Code(s): I10 - Essential (primary) hypertension
--- NOTE | 2018-04-16 08:18 | General Surgery Progress Note ---
<DannyDanielle Teo - Last Filed: 04/16/18 08:15> Date of Encounter: 04/16/18 Time of Encounter: 07:15 - Assessment and Plan (1) Ileus Current Visit: Yes Status: Acute vs SBO Will complete SBFT with gastrograffin today to r/o SBFT Continue supportive care and discomfort management Reglan completed IVF per primary team NPO; may give contrast per NG, clamp for exam. IF patient has n/c may return to [facility]. Further recommendations pending (2) Colitis Current Visit: Yes Status: Acute see above Subjective Patient reports: no new complaints, still having pain, pain is less, voiding w/ o difficulty, no flatus, no bowel movement, afebrile Objective Vital Signs - Last 8 Hours Temp Pulse Resp BP Pulse Ox 04/16/18 07:25 18 95 04/16/18 07:13 98.4 F 103 18 142/66 94 04/16/18 04:51 98.1 F 105 17 155/82 94 04/16/18 04:16 93 Intake and Output 04/15/18 04/16/18 04/16/18 23:59 07:59 15:59 Intake Total 1100 / 1100 Output Total 650 / 650 400 / 400 Balance 450 / 450 -400 / -400 Intake: IV Fluids 1100 / 1100 D5% And 0.45% Nacl 1000 Ml Bag 1000 / 1000 1,000 ML @ 75 mls/hr IVC . [id number] [facility] Rx#:[id number] Zosyn 3.375 GM In 0.9 % Sodium 100 / 100 Chloride (Mini-Bag +) 100 ML @ 25 mls/hr IVPB Q8HR [facility] Rx#: [id number] Output: Gastric Tube Lavage Amount 650 / 650 400 / 400 Right Nare 650 / 650 400 / 400 Other: Stool Size Small Stool Consistency liquid formed # Bowel Movements 1 Blood Glucose* 200 168 - General physical appearance no distress, other - ENT normal nares (NG noted) - Neck Neck exam: trachea midline - Respiratory normal expansion, normal respiratory effort, clear to auscultation - Cardiovascular Cardiovascular exam: Present: RRR, distant heart sounds - Abdomen Abdomen: Present: soft, tender. Absent: bowel sounds present Abdominal Tenderness: diffusely Hernia: none - Integumentary no rash - Neurologic normal coordination, normal sensation - Musculoskeletal normal posture - Psychiatric oriented to time, oriented to person, oriented to place, speech is normal, memory intact - Labs 04/16/18 05:05 04/16/18 05:05 Diabetes panel 04/16/18 Range/Units 05:05 Sodium 135 L (136-145) mEq/L Potassium 3.4 L (3.5-5.1) mEq/L Chloride 104 (98-107) mEq/L Carbon Dioxide 24 (23-29) mEq/L BUN 16 (8-23) mg/dL Creatinine 0.71 (0.60-1.20) mg/dL Glucose 160 H (70-105) mg/dL Calcium 8.4 L (8.6-10.3) mg/dL Calcium panel 04/16/18 Range/Units 05:05 Calcium 8.4 L (8.6-10.3) mg/dL Phosphorus 1.9 L (2.7-4.5) mg/dL Pituitary panel 04/16/18 Range/Units 05:05 Sodium 135 L (136-145) mEq/L Potassium 3.4 L (3.5-5.1) mEq/L Chloride 104 (98-107) mEq/L Carbon Dioxide 24 (23-29) mEq/L BUN 16 (8-23) mg/dL Creatinine 0.71 (0.60-1.20) mg/dL Glucose 160 H (70-105) mg/dL Calcium 8.4 L (8.6-10.3) mg/dL Adrenal panel 04/16/18 Range/Units 05:05 Sodium 135 L (136-145) mEq/L Potassium 3.4 L (3.5-5.1) mEq/L Chloride 104 (98-107) mEq/L Carbon Dioxide 24 (23-29) mEq/L BUN 16 (8-23) mg/dL Creatinine 0.71 (0.60-1.20) mg/dL Glucose 160 H (70-105) mg/dL Calcium 8.4 L (8.6-10.3) mg/dL - VTE Documentation of Mechanical Device: Intermittent pneumatic compression device Consult Discharge Plan - Plan Referrals: Ashleigh Quevedo CAFETER[facility] ATTENDANT [Primary Care Provider] - <Olegario Jaramillo - Last Filed: 04/16/18 20:12> Date of Encounter: 04/16/18 Objective Vital Signs - Last 8 Hours Temp Pulse Resp BP Pulse Ox 04/16/18 20:05 16 92 04/16/18 16:29 99.1 F 04/16/18 16:26 99.9 F H 104 18 152/82 91 Intake and Output 04/16/18 04/16/18 04/16/18 07:59 15:59 23:59 Intake Total 100 / 100 Output Total 400 / 400 600 / 600 600 / 600 Balance -300 / -300 -600 / -600 -600 / -600 Intake: IV Fluids 100 / 100 Zosyn 3.375 GM In 0.9 % Sodium 100 / 100 Chloride (Mini-Bag +) 100 ML @ 25 mls/hr IVPB Q8HR [facility] Rx#: [id number] Output: Gastric Tube Lavage Amount 400 / 400 Right Nare 400 / 400 Gastric Drainage 600 / 600 600 / 600 Right Nare 600 / 600 Other: Meal NPO Stool Size Small Stool Consistency liquid formed # Bowel Movements 1 Blood Glucose* 168 169 186 - Labs 04/16/18 05:05 04/16/18 05:05 Diabetes panel 04/16/18 Range/Units 05:05 Sodium 135 L (136-145) mEq/L Potassium 3.4 L (3.5-5.1) mEq/L Chloride 104 (98-107) mEq/L Carbon Dioxide 24 (23-29) mEq/L BUN 16 (8-23) mg/dL Creatinine 0.71 (0.60-1.20) mg/dL Glucose 160 H (70-105) mg/dL Calcium 8.4 L (8.6-10.3) mg/dL Calcium panel 04/16/18 Range/Units 05:05 Calcium 8.4 L (8.6-10.3) mg/dL Phosphorus 1.9 L (2.7-4.5) mg/dL Pituitary panel 04/16/18 Range/Units 05:05 Sodium 135 L (136-145) mEq/L Potassium 3.4 L (3.5-5.1) mEq/L Chloride 104 (98-107) mEq/L Carbon Dioxide 24 (23-29) mEq/L BUN 16 (8-23) mg/dL Creatinine 0.71 (0.60-1.20) mg/dL Glucose 160 H (70-105) mg/dL Calcium 8.4 L (8.6-10.3) mg/dL Adrenal panel 04/16/18 Range/Units 05:05 Sodium 135 L (136-145) mEq/L Potassium 3.4 L (3.5-5.1) mEq/L Chloride 104 (98-107) mEq/L Carbon Dioxide 24 (23-29) mEq/L BUN 16 (8-23) mg/dL Creatinine 0.71 (0.60-1.20) mg/dL Glucose 160 H (70-105) mg/dL Calcium 8.4 L (8.6-10.3) mg/dL - Attending Attestation I have personally performed a face to face evaluation on this patient. I have reviewed and agree with the care plan. History and Exam by me shows: The patient is seen and evaluated on morning rounds with the clinical nurse practitioner. She continues to be distended. Her abdomen is mildly tender. She had 2 small bowel movements. We will plan on upper GI small bowel follow- through with Gastrografin today to rule out any mechanical obstruction. Rakesh Jaramillo MD FACS
[2018-04-16] MEDS ORDERED: Potassium Phosphate 44 MEQ in 0.9 % Sodium Chloride 250 ML IVPB ONE (08:50)
[2018-04-16] MEDS: Lactobacillus 1 EACH CAP.SPRINK PO SCH (12:47)
[2018-04-16] MEDS: Aspirin Enteric Coated 81 MG Tablet PO SCH (12:47)
[2018-04-16] MEDS: Sennosides/Docusate Sodium TABLET PO SCH (12:50)
[2018-04-16] MEDS: Cholecalciferol (D-3) 1,000 UNIT TABLET PO SCH (12:50)
[2018-04-16] MEDS: amLODIPine 5 MG TABLET PO SCH (12:50)
[2018-04-16] MEDS: Ondansetron 4 MG/2 ML VIAL IVP PRN (14:37)
[2018-04-17] MEDS: Ondansetron 4 MG/2 ML VIAL IVP PRN ×2 (00:49→09:21)
[2018-04-17] MEDS: Piperacillin/Tazobactam 3.375 GM in 0.9 % Sodium Chloride Mini Bag 100 ML IVPB SCH ×3 (00:51→17:30)
[2018-04-17] MEDS: D5% in 0.45% NACL 1,000 ML IVC SCH ×3 (05:56→17:30)
[2018-04-17] MEDS: Sennosides/Docusate Sodium TABLET PO SCH ×2 (06:05→09:00)
[2018-04-17] MEDS: Insulin LISPRO 300 UNITS/3 ML VIAL SQ SCH ×3 (06:05→17:32)
[2018-04-17 06:15] LABS: Basophils % 0.3 %; Eosinophils # 0.2 K/mcL (0.0-0.6); Eosinophils % 1.2 %; Hematocrit 28.3 % (35.3-44.9); Hemoglobin 9.4 g/dL (11.5-15.4); Immature Granulocytes % 2.2 % (0-4); Lymphocytes # 2.2 K/mcL (0.6-4.6); Mean Corpuscular HGB Conc 33.2 g/dL (31.6-35.5); Mean Corpuscular Hemoglobin 29.5 pg (28.0-33.3); Mean Corpuscular Volume 88.7 fL (83.0-100.0); Mean Platelet Volume 10.1 fL (9.4-12.4); Monocytes # 1.5 K/mcL (0.0-1.3); Monocytes % 11.4 %; Platelet Count 265 K/mcL (140-400); Red Blood Count 3.19 M/mcL (3.82-4.97); Red Cell Distribution Width 13.5 % (11.5-14.5); Segmented Neutrophils % 67.9 %
[2018-04-17 07:18] LABS: BUN/Creatinine Ratio 18 (6-26); Blood Urea Nitrogen 13 mg/dL (8-23); Calcium 7.6 mg/dL (8.6-10.3); Carbon Dioxide 29 mEq/L (23-29); Chloride 106 mEq/L (98-107); Glucose 194 mg/dL (70-105); Magnesium 1.8 mg/dL (1.6-2.6); Osmolality,Calculated 295 (280-300); Phosphorous 2.6 mg/dL (2.7-4.5); Potassium 3.2 mEq/L (3.5-5.1); Sodium 140 mEq/L (136-145); eGFR For Non-African Americans > 60 (> 60)
[2018-04-17] MEDS ORDERED: Potassium Phosphate 44 MEQ in 0.9 % Sodium Chloride 250 ML IVPB ONE (07:41)
--- NOTE | 2018-04-17 07:53 | Internal Med Progress Note ---
Hospitalist Progress Note - Encounter Date of Encounter: 04/17/18 Time of Encounter: 07:40 - Subjective Interval History: No acute events overnight - Exam Vitals: Temp Pulse Resp BP Pulse Ox 98.4 F 98 18 157/87 91 04/17/18 07:07 04/17/18 07:07 04/17/18 07:07 04/17/18 07:07 04/17/18 07:07 Exam: Gen - Awake, alert, no acute distress HEENT - NCAT, PERRLA, EOMI, hearing grossly intact, oropharynx benign CV - Tachycardic, regular rhythm, normal S1 and S2, no M/R/G, no BLE edema Resp - Normal WOB, CTAB, no W/R/R GI - Soft, mildly distended, moderate TTP diffusely across abdomen with some guarding but no rebound, hypoactive bowel sounds, NG tube in place Skin - Warm, dry, no rashes/lesions/ulcers Psych - Normal mood and affect, no depression or anxiety - Assessment and Plan (1) Small bowel obstruction Current Visit: Yes Status: Acute Assessment and Plan: CT scan with IV contrast done 04/14 showed mild distention of the proximal small bowel with gradual tapering to the collapsed distal small bowel. Findings could represent an ileus or an early partial small bowel obstruction. Surgery has been consulted for further evaluation. NPO Surgery following. NPO and NG tube in place. On zofran and reglan. 04/17. Gastrograffin study completed yesterday showed findings suggestive of ileus. Cotninue NG tube. Management per surgery (2) Sepsis Current Visit: Yes Status: Acute Assessment and Plan: Still with tachycardia and worsening leukocytosis. Patient states that she is subjectively feeling better. Sources likely colitis and UTI. Continue IV fluids. Antibiotics broadened to zosyn 2/2 to worsening leukocytosis. Follow up blood cultures (3) Abdominal mass Current Visit: Yes Status: Acute Assessment and Plan: CT scan with IV contrast showed soft tissue mass in the mesentery measuring 3.8 x 3.1 cm. There are several mildly enlarged mesenteric lymph nodes. Oncology recommend outpatient PET scan and follow up biopsy (4) UTI (urinary tract infection) Current Visit: Yes Status: Acute Assessment and Plan: Continue antibiotics as per above. Luna catheter removed today. Follow up on urine culture. (5) Lactic acidosis Current Visit: Yes Status: Acute Assessment and Plan: Management as per above. (6) Colitis Current Visit: Yes Status: Acute Assessment and Plan: Antibiotics as per above. Still with significant abdominal pain. Will monitor closely and order further imaging if necessary. CT abdomen on showed left colon wall thickening and diverticulosis (7) Acute kidney injury Current Visit: Yes Status: Acute Assessment and Plan: Improved. Continue IVF as per above. Recheck BMP in AM. (8) Constipation Current Visit: Yes Status: Suspected Assessment and Plan: No BM in last 24 hours despite urge. Give miralax once. Start senna/docusate BID. Continue Dulcolax suppository PRN. Resumed home probiotic today. Treating colitis as per above. (9) DVT prophylaxis Current Visit: Yes Status: Acute Assessment and Plan: Continue SQ heparin. (10) Type 2 diabetes mellitus with hyperglycemia Current Visit: Yes Status: Chronic Assessment and Plan: Mild hyperglycemia. Will start accuchecks and low dose SSI QID AC/HS with initiation of clear liquid diet. (11) Hypertension Current Visit: Yes Status: Chronic Assessment and Plan: Currently borderline hypotensive. Hold home medications. Monitor vitals closely. (12) Hypokalemia Current Visit: Yes Status: Acute Assessment and Plan: Replaced - Time Spent with Patient Total time spent is greater than 50% in coordination of care (as documented) at patient's floor/unit and/or counseling patient: Internal Medicine: Result - Labs CBC & Chem 7: 04/17/18 06:00 04/17/18 06:00 Labs: Short CBC 04/17/18 Range/Units 06:00 WBC 13.2 H (4.3-11.1) K/mcL Hgb 9.4 L (11.5-15.4) g/dL Hct 28.3 L (35.3-44.9) % Plt Count 265 (140-400) K/mcL Neutrophils # 9.0 H (1.6-8.9) K/mcL BMP 04/17/18 06:00 Sodium 140 Potassium 3.2 L Chloride 106 Carbon Dioxide 29 BUN 13 Creatinine 0.73 Glucose 194 H Calcium 7.6 L - Impressions Impressions Small Bowel X-Ray 04/16/18 08:00 IMPRESSION: Findings compatible with small bowel ileus. There is a delayed small bowel transit time of approximately 7 hours. D/ / Ayad Woodward MD / Ayad Woodward MD Interpreting Provider: Ayad Woodward MD - VTE Documentation of Mechanical Device: Intermittent pneumatic compression device Consult Discharge Plan - Plan Referrals: Ashleigh Quevedo PLAYROOM ATTENDANT [Primary Care Provider] - (2) Sepsis Qualifiers: Sepsis type: sepsis due to unspecified organism Qualified Code(s): A41.9 - Sepsis, unspecified organism (3) Abdominal mass Qualifiers: Abdominal location: other location Qualified Code(s): R19.09 - Other intra- abdominal and pelvic swelling, mass and lump (4) UTI (urinary tract infection) Qualifiers: Urinary tract infection type: acute cystitis Hematuria presence: with hematuria Qualified Code(s): N30.01 - Acute cystitis with hematuria (8) Constipation Qualifiers: Constipation type: unspecified constipation type Qualified Code(s): K59.00 - Constipation, unspecified (10) Type 2 diabetes mellitus with hyperglycemia Qualifiers: Diabetes mellitus fpc insulin use: without fpc use Qualified Code (s): E11.65 - Type 2 diabetes mellitus with hyperglycemia (11) Hypertension Qualifiers: Hypertension type: essential hypertension Qualified Code(s): I10 - Essential (primary) hypertension
--- NOTE | 2018-04-17 09:48 | General Surgery Progress Note ---
<Stephanie Islas E - Last Filed: 04/17/18 09:44> Date of Encounter: 04/17/18 Time of Encounter: 09:45 - Assessment and Plan (1) Ileus Current Visit: Yes Status: Acute XR/XR small bowel FT gastrografin IMPRESSION: Findings compatible with small bowel ileus. There is a delayed small bowel transit time of approximately 7 hours. Continue Supportive care IVF per primary team NG tube pulled Clear liquids beginning at lunch Outpatient colonoscopy recommended (2) Colitis Current Visit: Yes Status: Acute Continue antibiotics as per primary IVF as per primary Supportive care Clear liquid diet NG tube pulled today Subjective Patient reports: feels better, pain is less, flatus, bowel movement, other ( Patient says she is feeling some better, pain is less. She said she has had a few bowel movements and this has helped her pain and bloating. ) Objective Vital Signs - Last 8 Hours Temp Pulse Resp BP Pulse Ox 04/17/18 07:07 98.4 F 98 18 157/87 91 04/17/18 04:10 98.8 F 102 17 157/79 95 Intake and Output 04/16/18 04/17/18 04/17/18 23:59 07:59 15:59 Intake Total 1100 / 1100 100 / 100 Output Total 640 / 640 160 / 160 Balance 460 / 460 -60 / -60 Intake: IV Fluids 1100 / 1100 100 / 100 D5% And 0.45% Nacl 1000 Ml Bag 1000 / 1000 1,000 ML @ 75 mls/hr IVC . [id number] [facility] Rx#:[id number] Zosyn 3.375 GM In 0.9 % Sodium 100 / 100 100 / 100 Chloride (Mini-Bag +) 100 ML @ 25 mls/hr IVPB Q8HR [facility] Rx#: [id number] Output: Gastric Tube Lavage Amount 40 / 40 160 / 160 Right Nare 40 / 40 160 / 160 Gastric Drainage 600 / 600 Right Nare 600 / 600 Other: Meal NPO Stool Size Moderate Moderate Stool Consistency soft loose Stool Color Brown Brown # Voids 1 1 # Bowel Movements 1 Blood Glucose* 186 196 - General physical appearance well developed, well nourished, no distress - Respiratory normal expansion, normal respiratory effort, clear to auscultation - Cardiovascular Cardiovascular exam: Present: RRR, no murmurs/rubs/gallops - Abdomen Abdomen: Present: bowel sounds present, non tender, distended (Less so than yesterday) - Integumentary no rash, no growths, no abnormal pigmentation - Musculoskeletal normal posture - Psychiatric oriented to time, oriented to person, oriented to place - Labs 04/17/18 06:00 04/17/18 06:00 Diabetes panel 04/17/18 Range/Units 06:00 Sodium 140 (136-145) mEq/L Potassium 3.2 L (3.5-5.1) mEq/L Chloride 106 (98-107) mEq/L Carbon Dioxide 29 (23-29) mEq/L BUN 13 (8-23) mg/dL Creatinine 0.73 (0.60-1.20) mg/dL Glucose 194 H (70-105) mg/dL Calcium 7.6 L (8.6-10.3) mg/dL Calcium panel 04/17/18 Range/Units 06:00 Calcium 7.6 L (8.6-10.3) mg/dL Phosphorus 2.6 L (2.7-4.5) mg/dL Pituitary panel 04/17/18 Range/Units 06:00 Sodium 140 (136-145) mEq/L Potassium 3.2 L (3.5-5.1) mEq/L Chloride 106 (98-107) mEq/L Carbon Dioxide 29 (23-29) mEq/L BUN 13 (8-23) mg/dL Creatinine 0.73 (0.60-1.20) mg/dL Glucose 194 H (70-105) mg/dL Calcium 7.6 L (8.6-10.3) mg/dL Adrenal panel 04/17/18 Range/Units 06:00 Sodium 140 (136-145) mEq/L Potassium 3.2 L (3.5-5.1) mEq/L Chloride 106 (98-107) mEq/L Carbon Dioxide 29 (23-29) mEq/L BUN 13 (8-23) mg/dL Creatinine 0.73 (0.60-1.20) mg/dL Glucose 194 H (70-105) mg/dL Calcium 7.6 L (8.6-10.3) mg/dL - VTE Documentation of Mechanical Device: Intermittent pneumatic compression device Consult Discharge Plan - Plan Referrals: Ashleigh Quevedo CNP [Primary Care Provider] - <Olegario Jaramillo T - Last Filed: 04/20/18 09:54> Date of Encounter: 04/17/18 Objective Vital Signs - Last 8 Hours Temp Pulse Resp BP Pulse Ox 04/20/18 07:30 98.1 F 83 18 150/72 93 04/20/18 04:29 98.1 F 79 17 147/73 96 Intake and Output 04/19/18 04/20/18 04/20/18 23:59 07:59 15:59 Other: Weight 82.1 kg Blood Glucose* 156 127 - Labs 04/20/18 04:00 04/20/18 04:41 Diabetes panel 04/20/18 Range/Units 04:41 Sodium 136 (136-145) mEq/L Potassium 4.0 (3.5-5.1) mEq/L Chloride 103 (98-107) mEq/L Carbon Dioxide 27 (23-29) mEq/L BUN 7 L (8-23) mg/dL Creatinine 0.79 (0.60-1.20) mg/dL Glucose 130 H (70-105) mg/dL Calcium 8.5 L (8.6-10.3) mg/dL Calcium panel 04/20/18 Range/Units 04:41 Calcium 8.5 L (8.6-10.3) mg/dL Phosphorus 3.6 (2.7-4.5) mg/dL Pituitary panel 04/20/18 Range/Units 04:41 Sodium 136 (136-145) mEq/L Potassium 4.0 (3.5-5.1) mEq/L Chloride 103 (98-107) mEq/L Carbon Dioxide 27 (23-29) mEq/L BUN 7 L (8-23) mg/dL Creatinine 0.79 (0.60-1.20) mg/dL Glucose 130 H (70-105) mg/dL Calcium 8.5 L (8.6-10.3) mg/dL Adrenal panel 04/20/18 Range/Units 04:41 Sodium 136 (136-145) mEq/L Potassium 4.0 (3.5-5.1) mEq/L Chloride 103 (98-107) mEq/L Carbon Dioxide 27 (23-29) mEq/L BUN 7 L (8-23) mg/dL Creatinine 0.79 (0.60-1.20) mg/dL Glucose 130 H (70-105) mg/dL Calcium 8.5 L (8.6-10.3) mg/dL - Attending Attestation I examined this patient and my medical decision-making was reviewed with the Resident Physician. I agree with the documented findings, disposition and treatment plan as described except to the extent set forth below. The patient is seen and evaluated on morning rounds with resident. I personally reviewed the small bowel follow-through films. She has transit through the colon at 7 hours which is markedly delayed, however, there are no specific transition points. She did have bowel movement after Gastrografin. We will discontinue the nasogastric tube and advance her diet. Olegario Jaramillo MD FACS
[2018-04-17] MEDS: Beclomethasone 80mcg MDI IH SCH ×2 (11:23→20:05)
[2018-04-17] MEDS: *HR* Heparin 5,000 UNIT/ML VIAL SQ SCH ×2 (12:12→17:31)
[2018-04-17] MEDS: Lactobacillus 1 EACH CAP.SPRINK PO SCH (12:23)
[2018-04-17] MEDS: Aspirin Enteric Coated 81 MG Tablet PO SCH (12:24)
[2018-04-17] MEDS: amLODIPine 5 MG TABLET PO SCH (12:24)
[2018-04-17] MEDS: Cholecalciferol (D-3) 1,000 UNIT TABLET PO SCH (12:24)
[2018-04-18] MEDS: Piperacillin/Tazobactam 3.375 GM in 0.9 % Sodium Chloride Mini Bag 100 ML IVPB SCH ×3 (00:41→18:36)
[2018-04-18 06:58] LABS: Hematocrit 28.3 % (35.3-44.9); Hemoglobin 9.3 g/dL (11.5-15.4); Mean Corpuscular HGB Conc 32.9 g/dL (31.6-35.5); Mean Corpuscular Hemoglobin 29.2 pg (28.0-33.3); Mean Platelet Volume 10.4 fL (9.4-12.4); Platelet Count 264 K/mcL (140-400); Red Blood Count 3.18 M/mcL (3.82-4.97); Red Cell Distribution Width 13.5 % (11.5-14.5)
[2018-04-18] MEDS: *HR* Heparin 5,000 UNIT/ML VIAL SQ SCH ×2 (07:01→18:35)
[2018-04-18 07:14] LABS: BUN/Creatinine Ratio 13 (6-26); Blood Urea Nitrogen 9 mg/dL (8-23); Calcium 7.9 mg/dL (8.6-10.3); Carbon Dioxide 29 mEq/L (23-29); Chloride 104 mEq/L (98-107); Glucose 170 mg/dL (70-105); Magnesium 1.7 mg/dL (1.6-2.6); Osmolality,Calculated 289 (280-300); Phosphorous 2.9 mg/dL (2.7-4.5); Potassium 3.3 mEq/L (3.5-5.1); Sodium 138 mEq/L (136-145); eGFR For Non-African Americans > 60 (> 60)
[2018-04-18] MEDS ORDERED: Potassium Chloride Elixir 20 MEQ/15 ML UDC PO SCH (07:45)
--- NOTE | 2018-04-18 07:59 | Internal Med Progress Note ---
Hospitalist Progress Note - Encounter Date of Encounter: 04/18/18 Time of Encounter: 07:55 - Subjective Interval History: No acute events overnight - Exam Vitals: Temp Pulse Resp BP Pulse Ox 99.3 F 82 17 135/77 95 04/18/18 04:54 04/18/18 04:54 04/18/18 04:54 04/18/18 04:54 04/18/18 04:54 Exam: Gen - Awake, alert, no acute distress HEENT - NCAT, PERRLA, EOMI, hearing grossly intact, oropharynx benign CV - Tachycardic, regular rhythm, normal S1 and S2, no M/R/G, no BLE edema Resp - Normal WOB, CTAB, no W/R/R GI - Soft, mildly distended, moderate TTP diffusely across abdomen with some guarding but no rebound, hypoactive bowel sounds, NG tube in place Skin - Warm, dry, no rashes/lesions/ulcers Psych - Normal mood and affect, no depression or anxiety - Assessment and Plan (1) Small bowel obstruction Current Visit: Yes Status: Acute Assessment and Plan: CT scan with IV contrast done 04/14 showed mild distention of the proximal small bowel with gradual tapering to the collapsed distal small bowel. Findings could represent an ileus or an early partial small bowel obstruction. Surgery has been consulted for further evaluation. NPO Surgery following. NPO and NG tube in place. On zofran and reglan. 04/18. Gastrograffin study completed 04/16 showed findings suggestive of ileus. Patient has had bowel movements in the last 24 hours as well as had NG tube discontinued. Tolerated clear liquids yesterday. Will advance to full liquids today, obtain PT consult and plan for discharge once cleared by surgery (2) Sepsis Current Visit: Yes Status: Acute Assessment and Plan: Resolving. Leukocytosis has improved. Patient states that she is subjectively feeling better. Sources likely colitis and UTI. Continue IV fluids. Continue zosyn. Blood cultures showed no growth. Urine cultures grew klebsiella and streptococcus (3) Abdominal mass Current Visit: Yes Status: Acute Assessment and Plan: CT scan with IV contrast showed soft tissue mass in the mesentery measuring 3.8 x 3.1 cm. There are several mildly enlarged mesenteric lymph nodes. Oncology recommend outpatient PET scan and follow up biopsy (4) UTI (urinary tract infection) Current Visit: Yes Status: Acute Assessment and Plan: Continue antibiotics as per above. Luna catheter removed today. Follow up on urine culture. (5) Lactic acidosis Current Visit: Yes Status: Acute Assessment and Plan: Management as per above. (6) Colitis Current Visit: Yes Status: Acute Assessment and Plan: Antibiotics as per above. Still with significant abdominal pain. Will monitor closely and order further imaging if necessary. CT abdomen on showed left colon wall thickening and diverticulosis (7) Acute kidney injury Current Visit: Yes Status: Acute Assessment and Plan: Improved. Continue IVF as per above. Recheck BMP in AM. (8) Constipation Current Visit: Yes Status: Suspected Assessment and Plan: No BM in last 24 hours despite urge. Give miralax once. Start senna/docusate BID. Continue Dulcolax suppository PRN. Resumed home probiotic today. Treating colitis as per above. (9) DVT prophylaxis Current Visit: Yes Status: Acute Assessment and Plan: Continue SQ heparin. (10) Type 2 diabetes mellitus with hyperglycemia Current Visit: Yes Status: Chronic Assessment and Plan: Mild hyperglycemia. Will start accuchecks and low dose SSI QID AC/HS with initiation of clear liquid diet. (11) Hypertension Current Visit: Yes Status: Chronic Assessment and Plan: Currently borderline hypotensive. Hold home medications. Monitor vitals closely. (12) Hypokalemia Current Visit: Yes Status: Acute Assessment and Plan: Replaced - Time Spent with Patient Total time spent is greater than 50% in coordination of care (as documented) at patient's floor/unit and/or counseling patient: Internal Medicine: Result - Labs CBC & Chem 7: 04/18/18 04:00 04/18/18 04:00 Labs: Short CBC 04/18/18 Range/Units 04:00 WBC 10.4 (4.3-11.1) K/mcL Hgb 9.3 L (11.5-15.4) g/dL Hct 28.3 L (35.3-44.9) % Plt Count 264 (140-400) K/mcL BMP 04/18/18 04:00 Sodium 138 Potassium 3.3 L Chloride 104 Carbon Dioxide 29 BUN 9 Creatinine 0.71 Glucose 170 H Calcium 7.9 L - VTE Documentation of Mechanical Device: Intermittent pneumatic compression device Consult Discharge Plan - Plan Referrals: Quevedo,Ashleigh L, LIVING COACH [Primary Care Provider] - (2) Sepsis Qualifiers: Sepsis type: sepsis due to unspecified organism Qualified Code(s): A41.9 - Sepsis, unspecified organism (3) Abdominal mass Qualifiers: Abdominal location: other location Qualified Code(s): R19.09 - Other intra- abdominal and pelvic swelling, mass and lump (4) UTI (urinary tract infection) Qualifiers: Urinary tract infection type: acute cystitis Hematuria presence: with hematuria Qualified Code(s): N30.01 - Acute cystitis with hematuria (8) Constipation Qualifiers: Constipation type: unspecified constipation type Qualified Code(s): K59.00 - Constipation, unspecified (10) Type 2 diabetes mellitus with hyperglycemia Qualifiers: Diabetes mellitus care home insulin use: without canal boat operator use Qualified Code (s): E11.65 - Type 2 diabetes mellitus with hyperglycemia (11) Hypertension Qualifiers: Hypertension type: essential hypertension Qualified Code(s): I10 - Essential (primary) hypertension
[2018-04-18 08:15] LABS: Basophils # 0.2 K/mcL (0.0-0.2); Eosinophils # 0.2 K/mcL (0.0-0.6); Lymphocytes # 2.7 K/mcL (0.6-4.6); Monocytes # 0.8 K/mcL (0.0-1.3); Platelet Estimate Normal (Normal)
[2018-04-18] MEDS: Sennosides/Docusate Sodium TABLET PO SCH ×2 (10:32→11:00)
[2018-04-18] MEDS: Insulin LISPRO 300 UNITS/3 ML VIAL SQ SCH ×4 (10:33→17:27)
[2018-04-18] MEDS: Lactobacillus 1 EACH CAP.SPRINK PO SCH (10:58)
[2018-04-18] MEDS: Cholecalciferol (D-3) 1,000 UNIT TABLET PO SCH (10:58)
[2018-04-18] MEDS: Potassium Chloride Elixir 20 MEQ/15 ML UDC PO SCH ×2 (10:59→15:22)
[2018-04-18] MEDS: amLODIPine 5 MG TABLET PO SCH (11:01)
[2018-04-18] MEDS: Aspirin Enteric Coated 81 MG Tablet PO SCH (11:01)
[2018-04-18] MEDS: Beclomethasone 80mcg MDI IH SCH ×2 (11:19→22:42)
--- NOTE | 2018-04-18 13:24 | General Surgery Progress Note ---
<Stephanie Islas E - Last Filed: 04/18/18 13:21> Date of Encounter: 04/18/18 Time of Encounter: 13:22 - Assessment and Plan (1) Ileus Current Visit: Yes Status: Acute Continue supportive care IVF primary team Full liquid diet Renal abdominal exams Pain control as per primary We will continue to follow (2) Colitis Current Visit: Yes Status: Acute See above Subjective Patient reports: feels better, tolerating liquids well, flatus, bowel movement, other (Patient states she is feeling better, still feels bloated, but less so than yesterday. Her pain is being well controlled.) Objective Vital Signs - Last 8 Hours Temp Pulse Resp BP Pulse Ox 04/18/18 11:31 96 04/18/18 10:55 98.4 F 82 18 137/79 94 04/18/18 07:25 97.6 F 80 18 146/79 93 Intake and Output 04/17/18 04/18/18 04/18/18 23:59 07:59 15:59 Intake Total 1220 / 1220 240 / 240 Balance 1220 / 1220 240 / 240 Intake: IV Fluids 1100 / 1100 D5% And 0.45% Nacl 1000 Ml Bag 1000 / 1000 1,000 ML @ 75 mls/hr IVC . [id number] [facility] Rx#:[id number] Zosyn 3.375 GM In 0.9 % Sodium 100 / 100 Chloride (Mini-Bag +) 100 ML @ 25 mls/hr IVPB Q8HR [facility] Rx#: [id number] Oral 120 / 120 240 / 240 Other: Meal Dinner Breakfast Percent of Meal Consumed 50% 0% Stool Size Small Stool Consistency loose liquid Stool Color Brown # Voids 1 # Bowel Movements 1 Blood Glucose* 176 163 208 - General physical appearance well developed, well nourished, no distress - Respiratory normal expansion, normal respiratory effort, clear to auscultation - Cardiovascular Cardiovascular exam: Present: RRR, no murmurs/rubs/gallops - Abdomen Abdomen: Present: bowel sounds present, soft, tender Abdominal Tenderness: RLQ (To deep palpation) - Musculoskeletal normal posture - Psychiatric oriented to time, oriented to person, oriented to place - Labs 04/18/18 04:00 04/18/18 04:00 Diabetes panel 04/18/18 Range/Units 04:00 Sodium 138 (136-145) mEq/L Potassium 3.3 L (3.5-5.1) mEq/L Chloride 104 (98-107) mEq/L Carbon Dioxide 29 (23-29) mEq/L BUN 9 (8-23) mg/dL Creatinine 0.71 (0.60-1.20) mg/dL Glucose 170 H (70-105) mg/dL Calcium 7.9 L (8.6-10.3) mg/dL Calcium panel 04/18/18 Range/Units 04:00 Calcium 7.9 L (8.6-10.3) mg/dL Phosphorus 2.9 (2.7-4.5) mg/dL Pituitary panel 04/18/18 Range/Units 04:00 Sodium 138 (136-145) mEq/L Potassium 3.3 L (3.5-5.1) mEq/L Chloride 104 (98-107) mEq/L Carbon Dioxide 29 (23-29) mEq/L BUN 9 (8-23) mg/dL Creatinine 0.71 (0.60-1.20) mg/dL Glucose 170 H (70-105) mg/dL Calcium 7.9 L (8.6-10.3) mg/dL Adrenal panel 04/18/18 Range/Units 04:00 Sodium 138 (136-145) mEq/L Potassium 3.3 L (3.5-5.1) mEq/L Chloride 104 (98-107) mEq/L Carbon Dioxide 29 (23-29) mEq/L BUN 9 (8-23) mg/dL Creatinine 0.71 (0.60-1.20) mg/dL Glucose 170 H (70-105) mg/dL Calcium 7.9 L (8.6-10.3) mg/dL - VTE Documentation of Mechanical Device: Intermittent pneumatic compression device Consult Discharge Plan - Plan Referrals: Sae,Ashleigh Bruce SALES DEMONSTRATOR [Primary Care Provider] - <Reid Hubbard - Last Filed: 04/18/18 15:22> Date of Encounter: 04/18/18 Objective Vital Signs - Last 8 Hours Temp Pulse Resp BP Pulse Ox 04/18/18 11:31 96 04/18/18 10:55 98.4 F 82 18 137/79 94 04/18/18 07:25 97.6 F 80 18 146/79 93 Intake and Output 04/17/18 04/18/18 04/18/18 23:59 07:59 15:59 Intake Total 1220 / 1220 240 / 240 Balance 1220 / 1220 240 / 240 Intake: IV Fluids 1100 / 1100 D5% And 0.45% Nacl 1000 Ml Bag 1000 / 1000 1,000 ML @ 75 mls/hr IVC . [id number] [facility] Rx#:[id number] Zosyn 3.375 GM In 0.9 % Sodium 100 / 100 Chloride (Mini-Bag +) 100 ML @ 25 mls/hr IVPB Q8HR [facility] Rx#: [id number] Oral 120 / 120 240 / 240 Other: Meal Dinner Breakfast Percent of Meal Consumed 50% 0% Stool Size Small Stool Consistency loose liquid Stool Color Brown # Voids 1 # Bowel Movements 1 Blood Glucose* 176 163 208 - Labs 04/18/18 04:00 04/18/18 04:00 Diabetes panel 04/18/18 Range/Units 04:00 Sodium 138 (136-145) mEq/L Potassium 3.3 L (3.5-5.1) mEq/L Chloride 104 (98-107) mEq/L Carbon Dioxide 29 (23-29) mEq/L BUN 9 (8-23) mg/dL Creatinine 0.71 (0.60-1.20) mg/dL Glucose 170 H (70-105) mg/dL Calcium 7.9 L (8.6-10.3) mg/dL Calcium panel 04/18/18 Range/Units 04:00 Calcium 7.9 L (8.6-10.3) mg/dL Phosphorus 2.9 (2.7-4.5) mg/dL Pituitary panel 04/18/18 Range/Units 04:00 Sodium 138 (136-145) mEq/L Potassium 3.3 L (3.5-5.1) mEq/L Chloride 104 (98-107) mEq/L Carbon Dioxide 29 (23-29) mEq/L BUN 9 (8-23) mg/dL Creatinine 0.71 (0.60-1.20) mg/dL Glucose 170 H (70-105) mg/dL Calcium 7.9 L (8.6-10.3) mg/dL Adrenal panel 04/18/18 Range/Units 04:00 Sodium 138 (136-145) mEq/L Potassium 3.3 L (3.5-5.1) mEq/L Chloride 104 (98-107) mEq/L Carbon Dioxide 29 (23-29) mEq/L BUN 9 (8-23) mg/dL Creatinine 0.71 (0.60-1.20) mg/dL Glucose 170 H (70-105) mg/dL Calcium 7.9 L (8.6-10.3) mg/dL - Attending Attestation I examined this patient and my medical decision-making was reviewed with the Resident Physician. I agree with the documented findings, disposition and treatment plan as described except to the extent set forth below. Review the above assessment and evaluation and agree with the above plan. Patient has some mild distention. Passing flatus and no nausea. We will order for a KUB evaluation.
[2018-04-19] MEDS: Sennosides/Docusate Sodium TABLET PO SCH ×2 (02:17→08:33)
[2018-04-19] MEDS: Piperacillin/Tazobactam 3.375 GM in 0.9 % Sodium Chloride Mini Bag 100 ML IVPB SCH (02:42)
[2018-04-19] MEDS: Insulin LISPRO 300 UNITS/3 ML VIAL SQ SCH ×4 (05:41→17:00)
[2018-04-19] MEDS: *HR* Heparin 5,000 UNIT/ML VIAL SQ SCH ×2 (06:28→17:33)
[2018-04-19 07:39] LABS: Hemoglobin 10.3 g/dL (11.5-15.4); Immature Platelets 3.7 % (1.1-6.1); Mean Corpuscular HGB Conc 33.2 g/dL (31.6-35.5); Mean Corpuscular Hemoglobin 29.8 pg (28.0-33.3); Mean Corpuscular Volume 89.6 fL (83.0-100.0); Mean Platelet Volume 9.8 fL (9.4-12.4); Platelet Count 291 K/mcL (140-400); Red Blood Count 3.46 M/mcL (3.82-4.97); Red Cell Distribution Width 13.6 % (11.5-14.5)
[2018-04-19] MEDS: Beclomethasone 80mcg MDI IH SCH ×2 (07:58→20:28)
[2018-04-19 08:00] LABS: BUN/Creatinine Ratio 9 (6-26); Blood Urea Nitrogen 7 mg/dL (8-23); Calcium 8.3 mg/dL (8.6-10.3); Carbon Dioxide 29 mEq/L (23-29); Chloride 105 mEq/L (98-107); Glucose 125 mg/dL (70-105); Magnesium 1.7 mg/dL (1.6-2.6); Osmolality,Calculated 285 (280-300); Potassium 4.4 mEq/L (3.5-5.1); Sodium 138 mEq/L (136-145); eGFR For Non-African Americans > 60 (> 60)
--- NOTE | 2018-04-19 08:02 | Internal Med Progress Note ---
Hospitalist Progress Note - Encounter Date of Encounter: 04/19/18 Time of Encounter: 08:00 - Subjective Interval History: No acute events overnight - Exam Vitals: Temp Pulse Resp BP Pulse Ox 98.2 F 76 17 147/82 94 04/19/18 07:02 04/19/18 07:02 04/19/18 07:02 04/19/18 07:02 04/19/18 07:02 Exam: Gen - Awake, alert, no acute distress HEENT - NCAT, PERRLA, EOMI, hearing grossly intact, oropharynx benign CV - Tachycardic, regular rhythm, normal S1 and S2, no M/R/G, no BLE edema Resp - Normal WOB, CTAB, no W/R/R GI - Soft, mildly distended, moderate TTP diffusely across abdomen with some guarding but no rebound, hypoactive bowel sounds, NG tube in place Skin - Warm, dry, no rashes/lesions/ulcers Psych - Normal mood and affect, no depression or anxiety - Assessment and Plan (1) Small bowel obstruction Current Visit: Yes Status: Acute Assessment and Plan: CT scan with IV contrast done 04/14 showed mild distention of the proximal small bowel with gradual tapering to the collapsed distal small bowel. Findings could represent an ileus or an early partial small bowel obstruction. Surgery has been consulted for further evaluation. NPO Surgery following. NPO and NG tube in place. On zofran and reglan. 04/19. Gastrograffin study completed 04/16 showed findings suggestive of ileus. Patient has had bowel movements in the last 24-48 hours as well as had NG tube discontinued. Tolerated clear and diet advanced to full liquids, obtain PT consult and plan for discharge once cleared by surgery (2) Sepsis Current Visit: Yes Status: Acute Assessment and Plan: Patient states that she is subjectively feeling better. Sources likely colitis and UTI. Continue IV fluids.Has completed 7 days of antibiotics and leukocytosis has resolved. Will d/c antibiotics (3) Abdominal mass Current Visit: Yes Status: Acute Assessment and Plan: CT scan with IV contrast showed soft tissue mass in the mesentery measuring 3.8 x 3.1 cm. There are several mildly enlarged mesenteric lymph nodes. Oncology recommend outpatient PET scan and follow up biopsy (4) UTI (urinary tract infection) Current Visit: Yes Status: Acute Assessment and Plan: Urine cultures grew klebsiella and strep parasanguis. Has completed a total f 7 days of antibiotics. (5) Lactic acidosis Current Visit: Yes Status: Acute Assessment and Plan: Management as per above. (6) Colitis Current Visit: Yes Status: Acute Assessment and Plan: Antibiotics as per above. Resolved. Will monitor closely and order further imaging if necessary. (7) Acute kidney injury Current Visit: Yes Status: Acute Assessment and Plan: Improved. Continue IVF as per above. Recheck BMP in AM. (8) DVT prophylaxis Current Visit: Yes Status: Acute Assessment and Plan: Continue SQ heparin. (9) Type 2 diabetes mellitus with hyperglycemia Current Visit: Yes Status: Chronic Assessment and Plan: Mild hyperglycemia. Will start accuchecks and low dose SSI QID AC/HS with initiation of clear liquid diet. (10) Hypertension Current Visit: Yes Status: Chronic Assessment and Plan: Currently borderline hypotensive. Hold home medications. Monitor vitals closely. (11) Hypokalemia Current Visit: Yes Status: Acute Assessment and Plan: Replaced - Time Spent with Patient Total time spent is greater than 50% in coordination of care (as documented) at patient's floor/unit and/or counseling patient: Internal Medicine: Result - Labs CBC & Chem 7: 04/19/18 04:00 04/19/18 04:00 Labs: Short CBC 04/18/18 04/19/18 Range/Units 04:00 04:00 WBC 12.0 H (4.3-11.1) K/mcL Hgb 10.3 L (11.5-15.4) g/dL Hct 31.0 L (35.3-44.9) % Plt Count 291 (140-400) K/mcL Neutrophils # 6.0 (1.6-8.9) K/mcL - VTE Documentation of Mechanical Device: Intermittent pneumatic compression device Consult Discharge Plan - Plan Referrals: Sae,Ashleigh Bruce, BREAD PANNER [Primary Care Provider] - (2) Sepsis Qualifiers: Sepsis type: sepsis due to unspecified organism Qualified Code(s): A41.9 - Sepsis, unspecified organism (3) Abdominal mass Qualifiers: Abdominal location: other location Qualified Code(s): R19.09 - Other intra- abdominal and pelvic swelling, mass and lump (4) UTI (urinary tract infection) Qualifiers: Urinary tract infection type: acute cystitis Hematuria presence: with hematuria Qualified Code(s): N30.01 - Acute cystitis with hematuria (9) Type 2 diabetes mellitus with hyperglycemia Qualifiers: Diabetes mellitus longterm insulin use: without longterm use Qualified Code (s): E11.65 - Type 2 diabetes mellitus with hyperglycemia (10) Hypertension Qualifiers: Hypertension type: essential hypertension Qualified Code(s): I10 - Essential (primary) hypertension
[2018-04-19 08:22] LABS: Basophils # 0.2 K/mcL (0.0-0.2); Eosinophils # 0.5 K/mcL (0.0-0.6); Lymphocytes # 2.9 K/mcL (0.6-4.6); Monocytes # 0.7 K/mcL (0.0-1.3); Neutrophils # 7.7 K/mcL (1.6-8.9); Platelet Estimate Normal (Normal)
[2018-04-19] MEDS: Lactobacillus 1 EACH CAP.SPRINK PO SCH (08:33)
[2018-04-19] MEDS: amLODIPine 5 MG TABLET PO SCH (08:33)
[2018-04-19] MEDS: Aspirin Enteric Coated 81 MG Tablet PO SCH (08:33)
[2018-04-19] MEDS: Cholecalciferol (D-3) 1,000 UNIT TABLET PO SCH (08:33)
[2018-04-19] MEDS: metroNIDAZOLE 500 MG TABLET PO SCH ×3 (09:36→20:22)
[2018-04-19] MEDS: levoFLOXacin 750 MG TABLET PO SCH (09:36)
--- NOTE | 2018-04-19 10:14 | General Surgery Progress Note ---
<Stephanie Islas E - Last Filed: 04/19/18 12:20> Date of Encounter: 04/19/18 Time of Encounter: 10:11 - Assessment and Plan (1) Ileus Current Visit: Yes Status: Acute Continue supportive care Advance diet as tolerated Serial abdominal exams Pain control as per primary We recommend outpatient colonoscopy with Dr. Jaramillo, as discussed with patient earlier this week. Surgery will sign off at this time, thank you for including us in the care of this patient, if he had any questions or concerns please feel free to contact us. (2) Colitis Current Visit: Yes Status: Acute See above Subjective Patient reports: feels better, tolerating liquids well, flatus, bowel movement, other (Patient states that she is feeling quite a bit better today, she is tolerating full liquids well. She states she is not in any pain.) Objective Vital Signs - Last 8 Hours Temp Pulse Resp BP Pulse Ox 04/19/18 08:42 94 04/19/18 07:02 98.2 F 76 17 147/82 94 04/19/18 03:57 97.9 F 73 17 131/70 93 Intake and Output 04/18/18 04/19/18 04/19/18 23:59 07:59 15:59 Intake Total 100 / 100 350 / 350 Balance 100 / 100 350 / 350 Intake: IV Fluids 100 / 100 Zosyn 3.375 GM In 0.9 % Sodium 100 / 100 Chloride (Mini-Bag +) 100 ML @ 25 mls/hr IVPB Q8H [facility] Rx#: [id number] Oral 350 / 350 Other: Meal Full liquid diet Stool Size Moderate Stool Consistency loose Stool Color Brown Green # Bowel Movements 1 Weight 83.574 kg Blood Glucose* 167 119 - General physical appearance well developed, well nourished, no distress - Respiratory normal expansion, normal respiratory effort, clear to auscultation - Cardiovascular Cardiovascular exam: Present: RRR, no murmurs/rubs/gallops - Abdomen Abdomen: Present: bowel sounds present, soft, non tender - Musculoskeletal normal posture - Psychiatric oriented to time, oriented to person, oriented to place - Labs 04/19/18 04:00 04/19/18 04:00 Diabetes panel 04/19/18 Range/Units 04:00 Sodium 138 (136-145) mEq/L Potassium 4.4 D (3.5-5.1) mEq/L Chloride 105 (98-107) mEq/L Carbon Dioxide 29 (23-29) mEq/L BUN 7 L (8-23) mg/dL Creatinine 0.82 (0.60-1.20) mg/dL Glucose 125 H (70-105) mg/dL Calcium 8.3 L (8.6-10.3) mg/dL Calcium panel 04/19/18 Range/Units 04:00 Calcium 8.3 L (8.6-10.3) mg/dL Phosphorus 3.0 (2.7-4.5) mg/dL Pituitary panel 04/19/18 Range/Units 04:00 Sodium 138 (136-145) mEq/L Potassium 4.4 D (3.5-5.1) mEq/L Chloride 105 (98-107) mEq/L Carbon Dioxide 29 (23-29) mEq/L BUN 7 L (8-23) mg/dL Creatinine 0.82 (0.60-1.20) mg/dL Glucose 125 H (70-105) mg/dL Calcium 8.3 L (8.6-10.3) mg/dL Adrenal panel 04/19/18 Range/Units 04:00 Sodium 138 (136-145) mEq/L Potassium 4.4 D (3.5-5.1) mEq/L Chloride 105 (98-107) mEq/L Carbon Dioxide 29 (23-29) mEq/L BUN 7 L (8-23) mg/dL Creatinine 0.82 (0.60-1.20) mg/dL Glucose 125 H (70-105) mg/dL Calcium 8.3 L (8.6-10.3) mg/dL - VTE Documentation of Mechanical Device: Intermittent pneumatic compression device Consult Discharge Plan - Plan Referrals: Ashleigh Quevedo, [employer]POR[employer] IN[employer]STIGATOR [Primary Care Provider] - <Reid Hubbard - Last Filed: 04/19/18 14:22> Date of Encounter: 04/19/18 Objective Vital Signs - Last 8 Hours Temp Pulse Resp BP Pulse Ox 04/19/18 10:48 98.3 F 85 18 129/76 96 04/19/18 08:42 94 04/19/18 07:58 16 129/76 96 04/19/18 07:02 98.2 F 76 17 147/82 94 Intake and Output 04/18/18 04/19/18 04/19/18 23:59 07:59 15:59 Intake Total 100 / 100 350 / 350 Balance 100 / 100 350 / 350 Intake: IV Fluids 100 / 100 Zosyn 3.375 GM In 0.9 % Sodium 100 / 100 Chloride (Mini-Bag +) 100 ML @ 25 mls/hr IVPB Q8H [facility] Rx#: [id number] Oral 350 / 350 Other: Meal Full liquid diet Stool Size Moderate Stool Consistency loose Stool Color Brown Green # Bowel Movements 1 Weight 83.574 kg Blood Glucose* 167 164 - Labs 04/19/18 04:00 04/19/18 04:00 Diabetes panel 04/19/18 Range/Units 04:00 Sodium 138 (136-145) mEq/L Potassium 4.4 D (3.5-5.1) mEq/L Chloride 105 (98-107) mEq/L Carbon Dioxide 29 (23-29) mEq/L BUN 7 L (8-23) mg/dL Creatinine 0.82 (0.60-1.20) mg/dL Glucose 125 H (70-105) mg/dL Calcium 8.3 L (8.6-10.3) mg/dL Calcium panel 04/19/18 Range/Units 04:00 Calcium 8.3 L (8.6-10.3) mg/dL Phosphorus 3.0 (2.7-4.5) mg/dL Pituitary panel 04/19/18 Range/Units 04:00 Sodium 138 (136-145) mEq/L Potassium 4.4 D (3.5-5.1) mEq/L Chloride 105 (98-107) mEq/L Carbon Dioxide 29 (23-29) mEq/L BUN 7 L (8-23) mg/dL Creatinine 0.82 (0.60-1.20) mg/dL Glucose 125 H (70-105) mg/dL Calcium 8.3 L (8.6-10.3) mg/dL Adrenal panel 04/19/18 Range/Units 04:00 Sodium 138 (136-145) mEq/L Potassium 4.4 D (3.5-5.1) mEq/L Chloride 105 (98-107) mEq/L Carbon Dioxide 29 (23-29) mEq/L BUN 7 L (8-23) mg/dL Creatinine 0.82 (0.60-1.20) mg/dL Glucose 125 H (70-105) mg/dL Calcium 8.3 L (8.6-10.3) mg/dL - Attending Attestation I examined this patient and my medical decision-making was reviewed with the Resident Physician. I agree with the documented findings, disposition and treatment plan as described except to the extent set forth below. I reviewed the above assessment and evaluation and agree with the above plan. Patient has tolerated her full liquid diet. Distention has decreased. Positive flatus and bowel movements. Okay to advance diet and we will sign off. Please contact us if you have any questions or concerns.
[2018-04-19] MEDS ORDERED: Insulin LISPRO 300 UNITS/3 ML VIAL SQ SCH (21:00)
[2018-04-20 05:03] LABS: Basophils % 0.2 %; Eosinophils # 0.3 K/mcL (0.0-0.6); Eosinophils % 2.7 %; Hematocrit 30.3 % (35.3-44.9); Hemoglobin 10.1 g/dL (11.5-15.4); Immature Granulocytes % 4.5 % (0-4); Lymphocytes # 2.1 K/mcL (0.6-4.6); Lymphocytes % 21.7 %; Mean Corpuscular HGB Conc 33.3 g/dL (31.6-35.5); Mean Corpuscular Hemoglobin 29.5 pg (28.0-33.3); Mean Corpuscular Volume 88.6 fL (83.0-100.0); Monocytes # 0.9 K/mcL (0.0-1.3); Monocytes % 9.2 %; Neutrophils # 6.1 K/mcL (1.6-8.9); Platelet Count 294 K/mcL (140-400); Red Blood Count 3.42 M/mcL (3.82-4.97); Red Cell Distribution Width 13.4 % (11.5-14.5); Segmented Neutrophils % 61.7 %
[2018-04-20 05:22] LABS: BUN/Creatinine Ratio 9 (6-26); Blood Urea Nitrogen 7 mg/dL (8-23); Calcium 8.5 mg/dL (8.6-10.3); Carbon Dioxide 27 mEq/L (23-29); Chloride 103 mEq/L (98-107); Glucose 130 mg/dL (70-105); Magnesium 1.6 mg/dL (1.6-2.6); Osmolality,Calculated 282 (280-300); Phosphorous 3.6 mg/dL (2.7-4.5); Sodium 136 mEq/L (136-145); eGFR For Non-African Americans > 60 (> 60)
[2018-04-20 05:23] LABS: Platelet Estimate Normal (Normal); Reactive Lymphocytes Present (Not Present)
[2018-04-20] MEDS: Beclomethasone 80mcg MDI IH SCH (07:13)
[2018-04-20] MEDS: *HR* Heparin 5,000 UNIT/ML VIAL SQ SCH (07:30)
[2018-04-20 07:31] VITALS: BP 150/72
--- NOTE | 2018-04-20 08:00 | Discharge Summary ---
Date of Encounter: 04/20/18 Time of Encounter: 08:00 - Discharge Diagnosis (1) Small bowel obstruction Priority: Primary Status: Acute Assessment and Plan: Ms. Cook is a 82 year old female presents from home by squad to ER for abdominal pain and nausea with dry heaves but no vomiting that started today. Describes abdominal pain as sharp cramping sensation. Most recent bowel movement was yesterday which was normal for her. Denies any current diarrhea. States she felt similar to this around two weeks ago but was able to have a bowel movement shortly after which alleviated her symptoms. She was noted to be septic on admission with a tachycardia, leukocytosis and Urinalysis positive for UTI and CT scan showing evidence of colitis. She had a CT scan on admission that did not reveal any acute pathology but due to her worsening abdominal distention, she had a repeat CT scan with IV contrast done 04/14 which showed mild distention of the proximal small bowel with gradual tapering to the collapsed distal small bowel with findings representing an ileus or an early partial small bowel obstruction. Surgery was consulted for further evaluation and she was made NPO and an NG tube placed was placed. She was managed supportively with fluids and antibiotics and antiemetics by surgery. Gastrograffin study completed 04/16 showed findings suggestive of ileus. Patient began to have bowel movements on 04/17 and NG tube was discontinued. She slowly began tolerating clear liquids and diet was advanced to full liquids. She was seen by PT who recommended discharge home with home health. She also completed a course of antibiotics for her UTI and colitis sepsis with cipro and flagyl initally which was later broadened to zosyn. She was discharged in a stable condition (2) Sepsis Priority: Primary Status: Acute Qualifiers: Sepsis type: sepsis due to unspecified organism Qualified Code(s): A41.9 - Sepsis, unspecified organism (3) Abdominal mass Priority: Secondary Status: Acute Qualifiers: Abdominal location: other location Qualified Code(s): R19.09 - Other intra- abdominal and pelvic swelling, mass and lump (4) UTI (urinary tract infection) Priority: Secondary Status: Acute Qualifiers: Urinary tract infection type: acute cystitis Hematuria presence: with hematuria Qualified Code(s): N30.01 - Acute cystitis with hematuria (5) Lactic acidosis Priority: Secondary Status: Acute (6) Colitis Priority: Secondary Status: Acute (7) Acute kidney injury Priority: Secondary Status: Acute (8) DVT prophylaxis Priority: Secondary Status: Acute (9) Type 2 diabetes mellitus with hyperglycemia Priority: Secondary Status: Chronic Qualifiers: Diabetes mellitus mcc insulin use: without tapper operator use Qualified Code(s): E11.65 - Type 2 diabetes mellitus with hyperglycemia (10) Hypertension Priority: Secondary Status: Chronic Qualifiers: Hypertension type: essential hypertension Qualified Code(s): I10 - Essential (primary) hypertension (11) Hypokalemia Priority: Secondary Status: Acute Hospital course: Ms. Cook is a 82 year old female - Time Spent with Patient Total time spent providing and/or coordinating discharge services: - Discharge Medications Home Medications: Atorvastatin Calcium [Lipitor] 80 mg PO DAILY 12/20/15 [History] Lisinopril-HCTZ 20-12.5 [Prinzide 20-12.5] 1 each PO BID 12/20/15 [History] Metformin HCl [Fortamet] 500 mg PO BID 12/20/15 [History] Trospium Chloride 20 mg PO BID 12/20/15 [History] Aspirin [Lo-Dose Aspirin EC] 81 mg PO DAILY 04/12/18 [History] Calcium Carbonate [Calcium] 500 mg PO BID 04/12/18 [History] Cholecalciferol (D-3) [Vitamin D] 1,000 unit PO DAILY 04/12/18 [History] Ginkgo Biloba [place] Extract [Ginkgo Biloba] 60 mg PO DAILY 04/12/18 [History] L.acidoph,Paracasei, B.lactis [Probiotic] 1 each PO DAILY 04/12/18 [History] amLODIPine [Norvasc] 10 mg PO DAILY 04/12/18 [History] Albuterol Sulfate [Proair Hfa] 2 puff IH Q6H PRN 04/13/18 [History] Fluticasone Propionate [Flovent Hfa] 1 puff IH BID 04/13/18 [History] Allergies/Adverse Reactions: 3 Allergy/AdvReac Type Severity Reaction Status Date / Time No Known Allergies Allergy Verified 12/20/15 10:24 Date of admission: 04/12/18 22:36 Primary care physician: Ashleigh Quevedo CNP Consults: 04/14/18 14:20 Consult to Surgery [CONS] Routine Consulting Provider: [facility] Reason for Consult: small bowel obstruction Call Completed: Yes 04/14/18 14:21 Consult to Oncology Hematology [CONS] Routine Consulting Provider: Tash Walker Reason for Consult: abdominal mass with prominent lymph nodes Call Completed: Yes 04/18/18 07:56 Consult to Physical Therapy [CONS] Routine Comment: Evaluate, develop and implement POC Reason for Consult: weakness Does patient have active BEDREST order?: No Is patient medically & hemodynamically stable?: Yes Patient assessed for mobility or mobilized this visit?: No - Constitutional Exam: Gen - Awake, alert, no acute distress HEENT - NCAT, PERRLA, EOMI, hearing grossly intact, oropharynx benign CV - Tachycardic, regular rhythm, normal S1 and S2, no M/R/G, no BLE edema Resp - Normal WOB, CTAB, no W/R/R GI - Soft, mildly distended, moderate TTP diffusely across abdomen with some guarding but no rebound, hypoactive bowel sounds, NG tube in place Skin - Warm, dry, no rashes/lesions/ulcers Psych - Normal mood and affect, no depression or anxiety - Head Head exam: Present: atraumatic, normocephalic - Constitutional Vitals: Temp Pulse Resp BP Pulse Ox 98.1 F 83 18 150/72 93 04/20/18 07:30 04/20/18 07:30 04/20/18 07:30 04/20/18 07:30 04/20/18 07:30 - Head Head exam: Present: atraumatic, normocephalic - Eye Eye exam: Present: PERRL, conjuntiva pink, sclera anicteric Pupils: Present: PERRL - Neck Neck exam general surgery: Present: supple, trachea midline. Absent: lymphadenopathy - Respiratory Respiratory exam: Present: CTAB. Absent: accessory muscle use, rales, rhonchi, wheezes - Cardiovascular Cardiovascular exam: Present: RRR, +S1, +S2. Absent: diastolic murmur, gallop, rubs, systolic murmur - GI/Abdominal GI/Abdominal exam: Present: normal bowel sounds, soft, no peritoneal signs. Absent: distended, tenderness - Extremities Exam Extremities exam: Present: warm, radial pulses palpable and symmetrical. Absent : calf tenderness, cyanotic, pedal edema - Neurological Exam Neurological exam: Present: CN II-XII intact, oriented X3, no focal deficits. Absent: pronater drift, facial droop, speech deficit - Skin Skin exam: Present: dry, intact - Patient Status Disposition: Home, Self-Care Condition: Good - Discharge Instructions Instructions: Urinary Tract Infection in Women (DC), Bowel Obstruction (DC) Follow Up With: Olegario Jaramillo MD [Partnered Physician] - 05/05/18 10:10 am (Please follow up as scehdule...) Ashleigh Quevedo CNP [Primary Care Provider] - 04/24/18 9:00 am (Please follow up as schedule...) - Diet and Activity Activity: as per physical therapy - VTE Documentation of Mechanical Device: Intermittent pneumatic compression device
[2018-04-20] MEDS: amLODIPine 5 MG TABLET PO SCH (08:56)
[2018-04-20] MEDS: metroNIDAZOLE 500 MG TABLET PO SCH ×2 (08:56→13:49)
[2018-04-20] MEDS: Cholecalciferol (D-3) 1,000 UNIT TABLET PO SCH (08:56)
[2018-04-20] MEDS: levoFLOXacin 750 MG TABLET PO SCH (08:57)
[2018-04-20] MEDS: Lactobacillus 1 EACH CAP.SPRINK PO SCH (08:57)
[2018-04-20] MEDS: Aspirin Enteric Coated 81 MG Tablet PO SCH (08:57)
[2018-04-20] MEDS: Sennosides/Docusate Sodium TABLET PO SCH (08:57)
[2018-04-20] MEDS: Insulin LISPRO 300 UNITS/3 ML VIAL SQ SCH ×2 (08:58→13:14)
--- NOTE | 2018-04-20 13:23 | Physician Discharge Referral ---
Home Health/Hosp Referral Info Transfer to: Home Health - Diagnosis (1) Small bowel obstruction Priority: Primary Status: Acute (2) Sepsis Status: Acute (3) Abdominal mass Status: Acute (4) UTI (urinary tract infection) Status: Acute (5) Lactic acidosis Status: Acute (6) Colitis Status: Acute (7) Acute kidney injury Status: Acute (8) DVT prophylaxis Status: Acute (9) Type 2 diabetes mellitus with hyperglycemia Status: Chronic (10) Hypertension Status: Chronic (11) Hypokalemia Status: Acute - Respiratory Orders Smoking Cessation: Smoking cessation has been advised. For more information, call the [place] Tobacco Quit Line at 2-071-NBATNOW. - Activity Activity Orders: Ambulate - Services Needed Following services are medically necessary services: Nursing, Home Health Aide, Physical Therapy - Transfer Medications Home Medications: Atorvastatin Calcium [Lipitor] 80 mg PO DAILY 12/20/15 [History] Lisinopril-HCTZ 20-12.5 [Prinzide 20-12.5] 1 each PO BID 12/20/15 [History] Metformin HCl [Fortamet] 500 mg PO BID 12/20/15 [History] Trospium Chloride 20 mg PO BID 12/20/15 [History] Aspirin [Lo-Dose Aspirin EC] 81 mg PO DAILY 04/12/18 [History] Calcium Carbonate [Calcium] 500 mg PO BID 04/12/18 [History] Cholecalciferol (D-3) [Vitamin D] 1,000 unit PO DAILY 04/12/18 [History] Ginkgo Biloba [place] Extract [Ginkgo Biloba] 60 mg PO DAILY 04/12/18 [History] L.acidoph,Paracasei, B.lactis [Probiotic] 1 each PO DAILY 04/12/18 [History] amLODIPine [Norvasc] 10 mg PO DAILY 04/12/18 [History] Albuterol Sulfate [Proair Hfa] 2 puff IH Q6H PRN 04/13/18 [History] Fluticasone Propionate [Flovent Hfa] 1 puff IH BID 04/13/18 [History] Allergies/Adverse Reactions: 3 Allergy/AdvReac Type Severity Reaction Status Date / Time No Known Allergies Allergy Verified 12/20/15 10:24 Certification: Further, I certify that my clinical findings support that this patient is homebound (i.e. absences from home require considerable and taxing effort and are for medical reasons or sabianism services or infrequently or short duration when for other reasons) because: Homebound Reason: Patient requires assistance of a person or device to safely leave home Attestation: My signature below is to certify that this patient is under my care and that I, or nurse practitioner, or a physician's advertising assistant manager working with me, has a face-to -face encounter with this patient.
== END 2018-04-20 15:48 | disposition home health service (06) | DRG 872 ==
LOC: 2ANU 18:49 → EMEROOARM 18:49 → 2ANU 21:28
PROVIDERS: ADMIT Family Medicine; ATTEND Family Medicine